=== PATIENT | female | born 1980 | race Caucasian/White ===

== ENCOUNTER 2018-11-10 22:57 | Observation (INO) | payer OTHER, SELFPAY ==
[2018-11-10 23:00] VITALS: BP 127/101; PULSE 100; RESP 16; TEMP 36.4; O2SAT 95; BMI 42.9
--- NOTE | 2018-11-10 23:16 | ED.EXTPRO ---
HPI - Extremity Problem General Chief complaint: Extremity Problem,Nontraumatic Stated complaint: LEFT LEG SWELLING NOT ABLE TO FEEL TOES Time Seen by Provider: 11/10/18 23:12 Source: patient Mode of arrival: ambulatory Limitations: no limitations History of Present Illness HPI Narrative: This is a 38-year-old female comes the emergency department with complaint of left leg pain. Patient has been having pain in the left calf. Patient states about a week ago she had area where the varicose vein sort of busted she states and there is bruising and pain. She saw the [facility] doctor who told her it was fine and they were flying to [place]. While in [place] she has had increasing pain of the leg and calf with increasing swelling and redness. The redness and swelling and pain really increased over the last 3-4 days. Patient has not had any fevers that she is aware of. She denies any shortness of breath and/or chest pain. She denies any passing out. She denies any vomiting, she was slightly nauseated earlier today. She denies any urinary symptoms or diarrhea or constipation. She is on a Depo shot, she denies any prior DVT history. Related Data Allergies Allergy/AdvReac Type Severity Reaction Status Date / Time iodine Allergy Anaphylaxis Verified 11/10/18 23:07 Review of Systems Review of Systems All systems reviewed & are unremarkable except as noted in HPI and below Constitutional Denies chills and Denies fever(s) Cardiovascular Denies chest pain, Denies palpitations, Denies dyspnea and Denies dyspnea on exertion Respiratory Denies cough, Denies pain on inspiration, Denies dyspnea, Denies dyspnea on exertion and Denies wheezing Gastrointestinal Gastrointestinal: Denies abdominal pain, Denies change in bowel habits, Denies constipation, Denies diarrhea, Denies nausea and Denies vomiting Genitourinary Denies urinary frequency, Denies dysuria and Denies urinary urgency Musculoskeletal Reports as per HPI, Reports muscle cramps (left calf), Denies muscle weakness, Denies numbness and Denies tingling Integumentary/Breasts Reports as per HPI and Reports erythema Neurologic Denies numbness, Denies tingling and Reports paresthesias (toes) Endocrine Denies palpitations Allergic/Immunologic Denies wheezing [facility] Medical History GERD (gastroesophageal reflux disease) (Acute) Morbid obesity with BMI of 40.0-44.9, adult (Acute) Varicose veins of both lower extremities (Acute) Surgical History History of cholecystectomy (Acute) Family History: Reviewed 11/11/18 by NAKIA Zuniga Social History household members: family Smoking Status: Never smoker alcohol intake: never Exam Narrative Exam Narrative: GENERAL: Alert and oriented x three, moderately obese female in mild distress. HEENT: Head normocephalic, atraumatic, EOMI, pupils reactive, face symmetric, moist mucous membranes NECK: Supple, full range of motion CARDIOVASCULAR: Regular rate and rhythm without murmurs, rubs or gallops. RESPIRATORY: Breath sounds equal bilaterally, no wheezes rales or rhonchi. ABDOMEN: Soft, nontender. Normoactive bowel sounds all 4 quadrants. No guarding or rebound, rigidity, no mass EXTREMITIES: Normal range of motion, no clubbing. Patient's left lower extremity in the calf area is more swollen in comparison to the right. Patient has erythema of the left calf with no clear line of demarcation where the erythema stops it covers about a 5 x 7 cm area. There is some pitting, it is non edematous. Patient is tender to palpation of the calf. She has 2+ pulses in the lower extremity bilaterally Neurovascularly intact NEUROLOGICAL: Cranial nerves II through XII grossly intact. Moving all extremities SKIN: Warm, dry, no petechiae, no lesions/lacerations noted. Initial Vital Signs Initial Vital Signs: Vital Signs Temperature 97.6 F 11/10/18 23:00 Pulse Rate 100 H 11/10/18 23:00 Respiratory Rate 16 11/10/18 23:00 Blood Pressure 127/101 H 11/10/18 23:00 Pulse Oximetry 95 11/10/18 23:00 Course Orders Ordered: ED Orders 11/10/18 23:28 US periph venous low extrem lt Stat 11/10/18 23:46 Basic Metabolic Panel Stat Complete Blood Count AUTO DIFF Stat Lactate (Lactic Acid) Stat Partial Thromboplastin Time Stat Prothrombin Time INR Stat 11/11/18 CRP [C-Reactive Protein Quant] Routine Erythrocyte Sedimentation Rate Routine Uric Acid Routine 11/11/18 00:11 Test Serum,Qual Stat 11/11/18 02:18 Consult to Discharge Planning Routine 11/11/18 12:00 Basic Metabolic Panel Routine Complete Blood Count AUTO DIFF Routine Acetaminophen (Tylenol) 650 mg PO Q6HR PRN PRN Reason: As Needed for Fever/Mild Pain Enoxaparin Sodium (Lovenox) 40 mg SUBCUT DAILY YARIEL Sodium Chloride (Normal Saline 0.9%) 1,000 mls @ 100 mls/hr IV CONT YARIEL Last Admin: 11/11/18 02:57 Dose: 100 mls/hr Clindamycin Phosphate (Cleocin) 600 mg in 50 mls @ 50 mls/hr IV Q8H YARIEL Ibuprofen (Advil) 600 mg PO Q6HR PRN PRN Reason: As Needed for Fever/Mild Pain Lactobacillus Acidophilus (Bacid Caplet) 1 each PO BIDWM YARIEL Ondansetron HCl (Zofran) 4 mg IV Q8HR PRN PRN Reason: Nausea And Vomiting Discontinued Medications Sodium Chloride (Normal Saline 0.9%) 1,000 mls @ 1,000 mls/hr IV BOLUS ONE Stop: 11/11/18 00:28 Last Infusion: 11/11/18 02:33 Dose: 0 mls/hr Admin: 11/10/18 23:51 Dose: 1,000 mls/hr Clindamycin Phosphate (Cleocin) 600 mg in 50 mls @ 50 mls/hr IV NOW ONE Stop: 11/11/18 01:06 Last Infusion: 11/11/18 02:33 Dose: 0 mls/hr Admin: 11/11/18 00:37 Dose: 50 mls/hr Ketorolac Tromethamine (Toradol) 30 mg IV NOW ONE Stop: 11/10/18 23:30 Last Admin: 11/10/18 23:52 Dose: 30 mg Morphine Sulfate (Morphine) 2 mg IV NOW ONE Stop: 11/11/18 01:25 Last Admin: 11/11/18 02:06 Dose: 2 mg Vital Signs - 8 hr 11/10/18 23:00 11/11/18 02:40 Temperature 97.6 F 98.6 F Pulse Rate 100 H 81 Respiratory Rate 16 16 Blood Pressure 127/101 H 133/86 Pulse Oximetry 95 99 MDM - Extremity (Nontraumatic) Lab Data Attestation: I reviewed the patient's lab results. Result diagrams: 12/10/18 23:46 11/10/18 23:46 Lab Results 11/10/18 11/10/18 11/10/18 Range/Units 23:46 23:46 23:46 WBC 5.6 (4.5-11.0) X10^3/uL RBC 5.10 (4.0-5.2) X10^6/uL Hgb 15.5 (12.0-16.0) g/dL Hct 44.6 (36-46) % MCV 87.4 (80-100) fL MCH 30.4 (26-34) PG MCHC 34.8 (30-36) % RDW 13.1 (11.6-14.8) % Plt Count 342 (150-400) X10^3/uL Neut % (Auto) 68.5 (50-75) % Lymph % (Auto) 20.2 L (25-40) % Love % (Auto) 6.7 (3-14) % Eos % (Auto) 3.7 (2-4) % Baso % (Auto) 0.9 (0-2) % Neut # (Auto) 3800 (0850-7547) /uL PT 12.2 (10.1-12.7) SECONDS INR 1.1 (0.9-1.3) APTT 30 (26.4-36.2) SECONDS Sodium 142 (137-145) mmol/L Potassium 3.7 (3.4-5.1) mmol/L Chloride 105 (98-107) mmol/L Carbon Dioxide 25 (22-32) mmol/L BUN 16 (7-17) mg/dL Creatinine 0.90 (0.52-1.04) mg/dL Estimated GFR > 60.0 (>60) mL/min BUN/Creatinine Ratio 17.8 (6-22) Glucose 98 (70-100) mg/dL Lactate (0.7-2.1) mmol/L Uric Acid (2.5-6.2) mg/dL Calcium 9.3 (8.4-10.2) mg/dL C-Reactive Protein (<1.0) mg/dL Serum , Qual (Negative) 11/10/18 11/10/18 11/10/18 Range/Units 23:46 23:46 23:46 WBC (4.5-11.0) X10^3/uL RBC (4.0-5.2) X10^6/uL Hgb (12.0-16.0) g/dL Hct (36-46) % MCV (80-100) fL MCH (26-34) PG MCHC (30-36) % RDW (11.6-14.8) % Plt Count (150-400) X10^3/uL Neut % (Auto) (50-75) % Lymph % (Auto) (25-40) % [place] % (Auto) (3-14) % Eos % (Auto) (2-4) % Baso % (Auto) (0-2) % Neut # (Auto) (8853-8554) /uL PT (10.1-12.7) SECONDS INR (0.9-1.3) APTT (26.4-36.2) SECONDS Sodium (137-145) mmol/L Potassium (3.4-5.1) mmol/L Chloride (98-107) mmol/L Carbon Dioxide (22-32) mmol/L BUN (7-17) mg/dL Creatinine (0.52-1.04) mg/dL Estimated GFR (>60) mL/min BUN/Creatinine Ratio (6-22) Glucose (70-100) mg/dL Lactate 0.7 (0.7-2.1) mmol/L Uric Acid (2.5-6.2) mg/dL Calcium (8.4-10.2) mg/dL C-Reactive Protein 2.2 H (<1.0) mg/dL Serum , Qual Negative (Negative) 11/10/18 Range/Units 23:46 WBC (4.5-11.0) X10^3/uL RBC (4.0-5.2) X10^6/uL Hgb (12.0-16.0) g/dL Hct (36-46) % MCV (80-100) fL MCH (26-34) PG MCHC (30-36) % RDW (11.6-14.8) % Plt Count (150-400) X10^3/uL Neut % (Auto) (50-75) % Lymph % (Auto) (25-40) % Love % (Auto) (3-14) % Eos % (Auto) (2-4) % Baso % (Auto) (0-2) % Neut # (Auto) (5065-4624) /uL PT (10.1-12.7) SECONDS INR (0.9-1.3) APTT (26.4-36.2) SECONDS Sodium (137-145) mmol/L Potassium (3.4-5.1) mmol/L Chloride (98-107) mmol/L Carbon Dioxide (22-32) mmol/L BUN (7-17) mg/dL Creatinine (0.52-1.04) mg/dL Estimated GFR (>60) mL/min BUN/Creatinine Ratio (6-22) Glucose (70-100) mg/dL Lactate (0.7-2.1) mmol/L Uric Acid 4.3 (2.5-6.2) mg/dL Calcium (8.4-10.2) mg/dL C-Reactive Protein (<1.0) mg/dL Serum , Qual (Negative) Imaging Data Venous US: Radiologist's impression: All the deep veins from common femoral vein through the popliteal vein of the left lower extremity demonstrate compressibility and augmentation. No masses or fluid collections were identified. Color flow images not provided. MDM Narrative Medical decision making narrative: patient concerning for cellulitis vs. dvt vs other cause. US is negative for DVT, patient has redness and recent area with break in the skin that could be source of bacterial infection. No signs of sepsis and patient's labs are normal. Given Clindamycin IV in department, on re-evaluation patient's cellulitis appears to be spreading while here in the department over the past 2 hr. Although patient has been afebrile, her only Vital abnormality has been elevated pulse lab work does not consistent with signs of sepsis with her quick spread of cellulitis talked with the hospitalist, Molina and she accepts for observation. Patient does not have pain out of proportion, no subcutaneous emphysema or signs concerning for nec fac at this time. Patient leg was marked for easier evaluation of skin changes by nursing. Discharge Plan Departure Patient Disposition: Admitted as Observation Clinical Impression: Cellulitis of left lower extremity Discharge Date/Time: 11/11/18 02:37 Interventions: ED Discharge Assessment Last Done: 11/11/18 02:36 Admit Date/Time: 11/11/18 01:41 Admit Provider: Klarissa Auguste
--- NOTE | 2018-11-10 23:28 | DI.US.S_ITS ---
PROCEDURE: US PERIPH VENOUS LOW EXTREM LT INDICATIONS: left leg swelling, redness, pain of calf. TECHNIQUE: Real-time imaging, as well as color and pulse Doppler interrogation, were performed of the lower extremity deep veins from the inguinal ligament to the popliteal fossa. COMPARISON: None. FINDINGS: The deep veins are normally compressible, and free of intraluminal thrombus. Color and pulse Doppler demonstrate normal phasic intraluminal flow. There is normal augmentation response to distal compression maneuver. IMPRESSION: No deep venous thrombosis identified within the left lower extremity. Dictated by: Beau AGUILAR Interpreted: Nilsa Tellez MD on 11/11/2018 at 9:23 Approved by: Nilsa Tellez M.D. on 11/11/2018 at 14:46
--- NOTE | 2018-11-10 23:34 | ED_ITS ---
HPI - Extremity Problem General Chief complaint: Extremity Problem,Nontraumatic Stated complaint: LEFT LEG SWELLING NOT ABLE TO FEEL TOES Time Seen by Provider: 11/10/18 23:12 Source: patient Mode of arrival: ambulatory Limitations: no limitations History of Present Illness HPI Narrative: This is a 38-year-old female comes the emergency department with complaint of left leg pain. Patient has been having pain in the left calf. Patient states about a week ago she had area where the varicose vein sort of busted she states and there is bruising and pain. She saw the [facility] doctor who told her it was fine and they were flying to [place]. While in [place] she has had increasing pain of the leg and calf with increasing swelling and redness. The redness and swelling and pain really increased over the last 3 -4 days. Patient has not had any fevers that she is aware of. She denies any shortness of breath and/or chest pain. She denies any passing out. She denies any vomiting, she was slightly nauseated earlier today. She denies any urinary symptoms or diarrhea or constipation. She is on a Depo shot, she denies any prior DVT history. Related Data Allergies Allergy/AdvReac Type Severity Reaction Status Date / Time iodine Allergy Anaphylaxis Verified 11/10/18 23:07 Review of Systems Review of Systems All systems reviewed & are unremarkable except as noted in HPI and below Constitutional Denies chills and Denies fever(s) Cardiovascular Denies chest pain, Denies palpitations, Denies dyspnea and Denies dyspnea on exertion Respiratory Denies cough, Denies pain on inspiration, Denies dyspnea, Denies dyspnea on exertion and Denies wheezing Gastrointestinal Gastrointestinal: Denies abdominal pain, Denies change in bowel habits, Denies constipation, Denies diarrhea, Denies nausea and Denies vomiting Genitourinary Denies urinary frequency, Denies dysuria and Denies urinary urgency Musculoskeletal Reports as per HPI, Reports muscle cramps (left calf), Denies muscle weakness, Denies numbness and Denies tingling Integumentary/Breasts Reports as per HPI and Reports erythema Neurologic Denies numbness, Denies tingling and Reports paresthesias (toes) Endocrine Denies palpitations Allergic/Immunologic Denies wheezing [facility] Medical History GERD (gastroesophageal reflux disease) (Acute) Morbid obesity with BMI of 40.0-44.9, adult (Acute) Varicose veins of both lower extremities (Acute) Surgical History History of cholecystectomy (Acute) Family History: Reviewed 11/11/18 by NAKIA Zuniga Social History household members: family Smoking Status: Never smoker alcohol intake: never Exam Narrative Exam Narrative: GENERAL: Alert and oriented x three, moderately obese female in mild distress. HEENT: Head normocephalic, atraumatic, EOMI, pupils reactive, face symmetric, moist mucous membranes NECK: Supple, full range of motion CARDIOVASCULAR: Regular rate and rhythm without murmurs, rubs or gallops. RESPIRATORY: Breath sounds equal bilaterally, no wheezes rales or rhonchi. ABDOMEN: Soft, nontender. Normoactive bowel sounds all 4 quadrants. No guarding or rebound, rigidity, no mass EXTREMITIES: Normal range of motion, no clubbing. Patient's left lower extremity in the calf area is more swollen in comparison to the right. Patient has erythema of the left calf with no clear line of demarcation where the erythema stops it covers about a 5 x 7 cm area. There is some pitting, it is non edematous. Patient is tender to palpation of the calf. She has 2+ pulses in the lower extremity bilaterally Neurovascularly intact NEUROLOGICAL: Cranial nerves II through XII grossly intact. Moving all extremities SKIN: Warm, dry, no petechiae, no lesions/lacerations noted. Initial Vital Signs Initial Vital Signs: Vital Signs Temperature 97.6 F 11/10/18 23:00 Pulse Rate 100 H 11/10/18 23:00 Respiratory Rate 16 11/10/18 23:00 Blood Pressure 127/101 H 11/10/18 23:00 Pulse Oximetry 95 11/10/18 23:00 Course Orders Ordered: ED Orders 11/10/18 23:28 US periph venous low extrem lt Stat 11/10/18 23:46 Basic Metabolic Panel Stat Complete Blood Count AUTO DIFF Stat Lactate (Lactic Acid) Stat Partial Thromboplastin Time Stat Prothrombin Time INR Stat 11/11/18 CRP [C-Reactive Protein Quant] Routine Erythrocyte Sedimentation Rate Routine Uric Acid Routine 11/11/18 00:11 Test Serum,Qual Stat 11/11/18 02:18 Consult to Discharge Planning Routine 11/11/18 12:00 Basic Metabolic Panel Routine Complete Blood Count AUTO DIFF Routine Acetaminophen (Tylenol) 650 mg PO Q6HR PRN PRN Reason: As Needed for Fever/Mild Pain Enoxaparin Sodium (Lovenox) 40 mg SUBCUT DAILY YARIEL Sodium Chloride (Normal Saline 0.9%) 1,000 mls @ 100 mls/hr IV CONT YARIEL Last Admin: 11/11/18 02:57 Dose: 100 mls/hr Clindamycin Phosphate (Cleocin) 600 mg in 50 mls @ 50 mls/hr IV Q8H YARIEL Ibuprofen (Advil) 600 mg PO Q6HR PRN PRN Reason: As Needed for Fever/Mild Pain Lactobacillus Acidophilus (Bacid Caplet) 1 each PO BIDWM YARIEL Ondansetron HCl (Zofran) 4 mg IV Q8HR PRN PRN Reason: Nausea And Vomiting Discontinued Medications Sodium Chloride (Normal Saline 0.9%) 1,000 mls @ 1,000 mls/hr IV BOLUS ONE Stop: 11/11/18 00:28 Last Infusion: 11/11/18 02:33 Dose: 0 mls/hr Admin: 11/10/18 23:51 Dose: 1,000 mls/hr Clindamycin Phosphate (Cleocin) 600 mg in 50 mls @ 50 mls/hr IV NOW ONE Stop: 11/11/18 01:06 Last Infusion: 11/11/18 02:33 Dose: 0 mls/hr Admin: 11/11/18 00:37 Dose: 50 mls/hr Ketorolac Tromethamine (Toradol) 30 mg IV NOW ONE Stop: 11/10/18 23:30 Last Admin: 11/10/18 23:52 Dose: 30 mg Morphine Sulfate (Morphine) 2 mg IV NOW ONE Stop: 11/11/18 01:25 Last Admin: 11/11/18 02:06 Dose: 2 mg Vital Signs - 8 hr 11/10/18 23:00 11/11/18 02:40 Temperature 97.6 F 98.6 F Pulse Rate 100 H 81 Respiratory Rate 16 16 Blood Pressure 127/101 H 133/86 Pulse Oximetry 95 99 MDM - Extremity (Nontraumatic) Lab Data Attestation: I reviewed the patient's lab results. Result diagrams: 12/10/18 23:46 11/10/18 23:46 Lab Results 11/10/18 11/10/18 11/10/18 Range/Units 23:46 23:46 23:46 WBC 5.6 (4.5-11.0) X10^3/uL RBC 5.10 (4.0-5.2) X10^6/uL Hgb 15.5 (12.0-16.0) g/dL Hct 44.6 (36-46) % MCV 87.4 (80-100) fL MCH 30.4 (26-34) PG MCHC 34.8 (30-36) % RDW 13.1 (11.6-14.8) % Plt Count 342 (150-400) X10^3/uL Neut % (Auto) 68.5 (50-75) % Lymph % (Auto) 20.2 L (25-40) % [place] % (Auto) 6.7 (3-14) % Eos % (Auto) 3.7 (2-4) % Baso % (Auto) 0.9 (0-2) % Neut # (Auto) 3800 (1066-1907) /uL PT 12.2 (10.1-12.7) SECONDS INR 1.1 (0.9-1.3) APTT 30 (26.4-36.2) SECONDS Sodium 142 (137-145) mmol/L Potassium 3.7 (3.4-5.1) mmol/L Chloride 105 (98-107) mmol/L Carbon Dioxide 25 (22-32) mmol/L BUN 16 (7-17) mg/dL Creatinine 0.90 (0.52-1.04) mg/dL Estimated GFR > 60.0 (>60) mL/min BUN/Creatinine Ratio 17.8 (6-22) Glucose 98 (70-100) mg/dL Lactate (0.7-2.1) mmol/L Uric Acid (2.5-6.2) mg/dL Calcium 9.3 (8.4-10.2) mg/dL C-Reactive Protein (<1.0) mg/dL Serum , Qual (Negative) 11/10/18 11/10/18 11/10/18 Range/Units 23:46 23:46 23:46 WBC (4.5-11.0) X10^3/uL RBC (4.0-5.2) X10^6/uL Hgb (12.0-16.0) g/dL Hct (36-46) % MCV (80-100) fL MCH (26-34) PG MCHC (30-36) % RDW (11.6-14.8) % Plt Count (150-400) X10^3/uL Neut % (Auto) (50-75) % Lymph % (Auto) (25-40) % [place] % (Auto) (3-14) % Eos % (Auto) (2-4) % Baso % (Auto) (0-2) % Neut # (Auto) (0526-6910) /uL PT (10.1-12.7) SECONDS INR (0.9-1.3) APTT (26.4-36.2) SECONDS Sodium (137-145) mmol/L Potassium (3.4-5.1) mmol/L Chloride (98-107) mmol/L Carbon Dioxide (22-32) mmol/L BUN (7-17) mg/dL Creatinine (0.52-1.04) mg/dL Estimated GFR (>60) mL/min BUN/Creatinine Ratio (6-22) Glucose (70-100) mg/dL Lactate 0.7 (0.7-2.1) mmol/L Uric Acid (2.5-6.2) mg/dL Calcium (8.4-10.2) mg/dL C-Reactive Protein 2.2 H (<1.0) mg/dL Serum , Qual Negative (Negative) 11/10/18 Range/Units 23:46 WBC (4.5-11.0) X10^3/uL RBC (4.0-5.2) X10^6/uL Hgb (12.0-16.0) g/dL Hct (36-46) % MCV (80-100) fL MCH (26-34) PG MCHC (30-36) % RDW (11.6-14.8) % Plt Count (150-400) X10^3/uL Neut % (Auto) (50-75) % Lymph % (Auto) (25-40) % [place] % (Auto) (3-14) % Eos % (Auto) (2-4) % Baso % (Auto) (0-2) % Neut # (Auto) (6741-2904) /uL PT (10.1-12.7) SECONDS INR (0.9-1.3) APTT (26.4-36.2) SECONDS Sodium (137-145) mmol/L Potassium (3.4-5.1) mmol/L Chloride (98-107) mmol/L Carbon Dioxide (22-32) mmol/L BUN (7-17) mg/dL Creatinine (0.52-1.04) mg/dL Estimated GFR (>60) mL/min BUN/Creatinine Ratio (6-22) Glucose (70-100) mg/dL Lactate (0.7-2.1) mmol/L Uric Acid 4.3 (2.5-6.2) mg/dL Calcium (8.4-10.2) mg/dL C-Reactive Protein (<1.0) mg/dL Serum , Qual (Negative) Imaging Data Venous US: Radiologist's impression: All the deep veins from common femoral vein through the popliteal vein of the left lower extremity demonstrate compressibility and augmentation. No masses or fluid collections were identified. Color flow images not provided. MDM Narrative Medical decision making narrative: patient concerning for cellulitis vs. dvt vs other cause. US is negative for DVT, patient has redness and recent area with break in the skin that could be source of bacterial infection. No signs of sepsis and patient's labs are normal. Given Clindamycin IV in department, on re-evaluation patient's cellulitis appears to be spreading while here in the department over the past 2 hr. Although patient has been afebrile, her only Vital abnormality has been elevated pulse lab work does not consistent with signs of sepsis with her quick spread of cellulitis talked with the hospitalist , Molina and she accepts for observation. Patient does not have pain out of proportion, no subcutaneous emphysema or signs concerning for nec fac at this time. Patient leg was marked for easier evaluation of skin changes by nursing. Discharge Plan Departure Patient Disposition: Admitted as Observation Clinical Impression: Cellulitis of left lower extremity Discharge Date/Time: 11/11/18 02:37 Interventions: ED Discharge Assessment Last Done: 11/11/18 02:36 Admit Date/Time: 11/11/18 01:41 Admit Provider: Klarissa Auguste
[2018-11-10] MEDS: SODIUM CHLORIDE 0.9% 1,000 ML 1000 ML IV (23:51)
[2018-11-10] MEDS: KETOROLAC 60 MG/2 ML VIAL 30 MG IV (23:52)
[2018-11-11 00:03] LABS: Add Manual Diff / Slide Review NO; Basophils Percent Auto 0.9 % (0-2); Eosinophils Percent Auto 3.7 % (2-4); Hematocrit 44.6 % (36-46); Hemoglobin 15.5 g/dL (12.0-16.0); Lymphocytes Percent Auto 20.2 % (25-40); Mean Corpuscular HGB Conc 34.8 % (30-36); Mean Corpuscular Hemoglobin 30.4 PG (26-34); Mean Corpuscular Volume 87.4 fL (80-100); Monocytes Percent Auto 6.7 % (3-14); Neutrophils Absolute Auto 3800 /uL (3000-5900); Neutrophils Percent Auto 68.5 % (50-75); Platelet Count 342 X10^3/uL (150-400); Red Cell Distribution Width 13.1 % (11.6-14.8); White Blood Cell Count 5.6 X10^3/uL (4.5-11.0)
[2018-11-11 00:05] LABS: INR 1.1 (0.9-1.3); Prothrombin Time 12.2 SECONDS (10.1-12.7)
[2018-11-11 00:07] LABS: PTT Partial Thromboplastin Tim 30 SECONDS (26.4-36.2)
[2018-11-11 00:09] LABS: BUN Creatinine Ratio 17.8 (6-22); Blood Urea Nitrogen 16 mg/dL (7-17); Calcium 9.3 mg/dL (8.4-10.2); Carbon Dioxide 25 mmol/L (22-32); Chloride 105 mmol/L (98-107); Estimated Glomerular Filt Rate > 60.0 mL/min (>60); Glucose 98 mg/dL (70-100); HEMOLYSIS < 15 (0-50); Lactate (Lactic Acid) 0.7 mmol/L (0.7-2.1); Potassium 3.7 mmol/L (3.4-5.1); Sodium 142 mmol/L (137-145)
[2018-11-11 00:32] LABS: Pregnancy Test Serum,Qual Negative (Negative)
[2018-11-11] MEDS: CLINDAMYCIN 600 MG/50 ML PIGGYBACK 50 MG IV (00:37)
[2018-11-11] MEDS: MORPHINE 2 MG/ML INJ IV (02:06)
[2018-11-11 02:40] VITALS: BP 133/86; PULSE 81; RESP 16; TEMP 37; O2SAT 99
--- NOTE | 2018-11-11 02:41 | P.HP_ITS ---
History of Present Illness Date Patient Seen: 11/11/18 Time Patient Seen: 02:38 Chief complaint: LEFT LEG SWELLING NOT ABLE TO FEEL TOES Narrative: The patient is a 38-year-old female with PMH of morbid obesity (BMI 42.9) and osteoarthritis. Patient presented to the ED on 2017 in the 2300 hour out of concern for left lower extremity pain. Symptom onset 1 week ago. At that time she felt One week ago a sensation of what she describes as burst varicose vein, which was felt at the medial aspect of the calf level. Shortly after developed pain and discomfort in the area, she describes presence of mild localized redness. Patient was seen at an outpatient / urgent care type of clinic, diagnosed w/ cellulitis, and treated with a dose of oral antibiotic. Patient was not given additional antimicrobial agents, she was asked to follow up at the [facility], which she did and at that time was prescribed topical ointment to be applied to the affected area 3 to 4 times a day ( patient unable to recall the name of the ointment). she used the on meant for period of 5 days and found to be ineffective. Over the past 2 days there has been an increase in pain, edema, and erythema. Shortly after presenting to the ED, patient developed partial loss of sensation and tingling of the toes on the affected extremity. Erythema noted to be rapidly speading while patient in the ED. Patient denies fever and chills. No chest pain, palpitations, dyspnea, dizziness, lightheadedness or syncopal events. No nausea or vomiting. No s/s of active blood loss. Denies trauma to the affected extremity. No wounds or ulcers. No pruritis or visible dermatitis of the affected area. No known infection of the toes. No known breaks in skin. She has not been in a wooded area or notes risk of exposure to insect bites. There is a dog in the home. Traveled to [place] in the past week (travel was after onset of symptoms). While in [place] denies exposure to pools or hot tubs. No prior history of MRSA or cellulitis. No h/o of blood disorders or PE/DVT. Patient is known to have arthritis at multiple joints. No prior or current history of tobacco dependence. Known to have received Depo Provera in the past. Onset of symptoms 1 week ago. Prior to onset of the pain patient describes a varicose vein with sensation of bursting. Initially, associated symptoms included bruising; however, in the past 3-4 days patient has noticed swelling and erythema. Denies numbness or tingling. No fever or chills. No chest pain , palpitations, dizziness, lightheadedness, or syncopal events. No nausea or vomiting. No sign or symptoms of active blood loss. No known trauma to the affected extremity. No prior or current history of tobacco dependence. On a Depo Provera shot. No known history of coagulation disorders or prior thrombosis. No history of MRSA colonization. ED workup Initial VS: T 97.6, BP 127/101, HR 100, RR 16, SpO2 95 on RA LLE pain rated at 8/10 on presentation. WBC 5.6, HGB 15.5, PLT 342, lymphocytes 20.2% PT 12.2, INR 1.1, APTT 30 NA 142, K 3.7, CL 105, CA 9.3, CO2 25, BUN 16, sCR 0.90, GLU 98, Lactate 0.7 LLE Venous Doppler negative for DVT per report received from ED physician. Vascular U/S imaging / final read pending. Patient History Medical History GERD (gastroesophageal reflux disease) (Acute) Morbid obesity with BMI of 40.0-44.9, adult (Acute) Varicose veins of both lower extremities (Acute) Surgical History History of cholecystectomy (Acute) Family & Social History Family History: Reviewed 11/11/18 by NAKIA Zuniga Safety & Behavioral: Feels Safe in Current Yes Environment Tobacco & Substance use: Smoking Status Never smoker alcohol intake frequency 0-2 drinks per day Substance Use Type does not use Meds Allergies Allergy/AdvReac Type Severity Reaction Status Date / Time iodine Allergy Anaphylaxis Verified 11/10/18 23:07 Review of Systems Review of Systems All systems reviewed & are unremarkable except as noted in HPI and below Exam Vital Signs (past 8 hours): - 11/10/18 23:00 Temperature 97.6 F Pulse Rate 100 H Respiratory Rate 16 Blood Pressure 127/101 H Pulse Oximetry 95 Oxygen Delivery Method Room Air Narrative Exam Narrative: Constitutional: NAD, notes pain at left lower extremity Neurologic: AOx3, no focal neurological deficits Head: NC, AT Eyes: pupils equal and reactive Ears: external ears normal, no otorrhea Nose: external nose normal, no rhinorrhea or epistaxis Throat: dry MM, oropharynx w/o exudate Neck: no masses, lymphadenopathy Chest / Respiratory: equal chest rise, unlabored respiratory effort, no tachypnea, CTAB Heart / CV: S1S2 Abdomen / GI: round, + central obesity, NT, ND, + BS, no organomegaly, no inginal lymphadenopathy : no suprapubic tenderness Peripheral / Vascular: RLE no edema, erythema or cyanosis LLE remarkable for non-pitting edema, erythma spread from ankle to slightly above knee and inner thigh (outlined), sensation is present but diminished, calf area hot to touch, foot slightly cool to touch, some mild mottling at the foot ankle site pedal and PT pulse present, diminished ROM of the ankle, no overt bruising , a degree of induration noted around calf area Musc: full ROM of upper and lower extremities, decreased ROM of left ankle Skin: LLE edema, erythema, induration Objective Labs Result Diagrams: 11/10/18 23:46 11/10/18 23:46 Labs: Laboratory Results - last 24 hr 11/10/18 11/10/18 11/10/18 23:46 23:46 23:46 WBC 5.6 RBC 5.10 Hgb 15.5 Hct 44.6 MCV 87.4 MCH 30.4 MCHC 34.8 RDW 13.1 Plt Count 342 Neut % (Auto) 68.5 Lymph % (Auto) 20.2 L [place] % (Auto) 6.7 Eos % (Auto) 3.7 Baso % (Auto) 0.9 Neut # (Auto) 3800 PT 12.2 INR 1.1 APTT 30 Sodium 142 Potassium 3.7 Chloride 105 Carbon Dioxide 25 BUN 16 Creatinine 0.90 Estimated GFR > 60.0 BUN/Creatinine Ratio 17.8 Glucose 98 Lactate Calcium 9.3 Serum , Qual 11/10/18 11/10/18 23:46 23:46 WBC RBC Hgb Hct MCV MCH MCHC RDW Plt Count Neut % (Auto) Lymph % (Auto) [place] % (Auto) Eos % (Auto) Baso % (Auto) Neut # (Auto) PT INR APTT Sodium Potassium Chloride Carbon Dioxide BUN Creatinine Estimated GFR BUN/Creatinine Ratio Glucose Lactate 0.7 Calcium Serum , Qual Negative Assessment & Plan Plan: Assessment/Plan Narrative: Left lower extremity cellulitis, does not involve foot No indication sepsis. Doppler U/S of LLE negative for DVT. DDx: Ruptured superficial varicosity w/ bleeding and hematoma, phlebitis, gout , septic arthritis - Blood cultures collected in the ED, results pending, to be followed - Add Sed Rate, CRP, and uric acid level. Repeat CBC, BMP at noon. - Empiric therapy w/ Clindamycin - IVF x1L, then d/c - Supportive care: elevate, rest affected extremity; analgesics for pain control - Neurovascular checks Q4H - Lake margins of cellulitis with skin marker to monitor for spread of inflammation Dehydration, mild, IVF Morbid Obesity, BMI 42.9 Patient wishes to be a full code. No formal health directive. Significant other is a surrogate decision maker. Home meds reviewed and reconciled accordingly.
[2018-11-11] MEDS: SODIUM CHLORIDE 0.9% 1,000 ML 100 ML IV (02:57)
[2018-11-11 03:01] VITALS: BMI 42.9
[2018-11-11 03:30] VITALS: O2SAT 99
[2018-11-11 04:52] LABS: C-Reactive Protein Quant 2.2 mg/dL (<1.0)
[2018-11-11 05:01] LABS: Uric Acid 4.3 mg/dL (2.5-6.2)
[2018-11-11 06:28] VITALS: BP 116/78; PULSE 83; RESP 16; TEMP 37.1; O2SAT 98
[2018-11-11 07:35] VITALS: BP 92/71; PULSE 74; RESP 18; TEMP 36.8; O2SAT 99
[2018-11-11 09:00] VITALS: O2SAT 99
[2018-11-11] MEDS: LACTOBACILLUS ACIDOPHILUS TABLET 1 EACH PO (09:23)
[2018-11-11] MEDS: VANCOMYCIN 1,000 MG/200 ML FROZ.PIGGY 200 MG IV (09:23)
[2018-11-11] MEDS: FUROSEMIDE 40 MG/4 ML VIAL IV (09:23)
[2018-11-11] MEDS: DOXYCYCLINE HYCLATE 100 MG TABLET PO (09:24)
[2018-11-11] MEDS: levoFLOXacin 250 MG TABLET 750 MG PO (09:24)
[2018-11-11] MEDS: ENOXAPARIN 40 MG/0.4 ML SYRINGE SUBCUT (09:24)
--- NOTE | 2018-11-11 11:45 | CM.DANOTE ---
DCP/Assessment: Reviewed chart. Patient is a 38yr old female admitted to [facility] as OBS status with LLE cellulitis. Primary payor is 1)Mario Eden. No PCP listed. Met with patient explained CM/SW role. Patient alert and oriented at time of visit. Patient reports that she resides with her family in [place] Patient's spouse is in the and they just relocated in [place] from [place]. Patient reports so far adjusting well. Patient reports that she is completely I in all ADL's. Patient denies any d/c planning needs and hopes to go home later today. P: Home when medically stable. MD reports possible d/c later this afternoon. WINSOME Valadez Discharge Planning/Care Management CM Discharge Assessment Start: 11/11/18 11:41 Freq: Status: Active Protocol: Document 11/11/18 11:43 KJS (Rec: 11/11/18 11:44 KJS [id number]) Discharge Planning Assessment Assigned Lapping Machine Tender WINSOME Valadez Contact Information Clarence Chen Advance Directives? Yes Advance Directives on File No: at mom's house History Provided By Patient Prior Living Arrangements House Household Members spouse family Type of transporation used prior to Drives own vehicle admit Independent with ADL's Yes Is patient alert and oriented? Yes Caregiver for Another Yes: Has child in the home Barriers to Discharge No Discharge Plan Home Referrals Initiated None needed Whiteboard Updated in Patient Room with Yes name and ext. # of Lapping Machine Tender Review Status In Process Please Provide Date Initial DC 11/11/18 Assessment Was Performed Next Review Type Continued Stay Review
--- NOTE | 2018-11-11 12:16 | PM.DS.1 ---
History of Present Illness Date Patient Seen: 11/11/18 Time Patient Seen: 08:40 Chief complaint: LEFT LEG SWELLING NOT ABLE TO FEEL TOES Narrative: [address] [address] History & Physical Report Patient: ROSALINE GAYTAN MR#: [id number] : 1980 Acct:[id number] Age/Sex: 38 / F Date of Service: 11/11/18 Provider: Klarissa Auguste History of Present Illness Date Patient Seen: 11/11/18 Time Patient Seen: 02:38 Chief complaint: LEFT LEG SWELLING NOT ABLE TO FEEL TOES Narrative: The patient is a 38-year-old female with PMH of morbid obesity (BMI 42.9) and osteoarthritis. Patient presented to the ED on 11/10/2018 in the 2300 hour out of concern for left lower extremity pain. Symptom onset 1 week ago. At that time she felt One week ago a sensation of what she describes as burst varicose vein, which was felt at the medial aspect of the calf level. Shortly after developed pain and discomfort in the area, she describes presence of mild localized redness. Patient was seen at an outpatient / urgent care type of clinic, diagnosed w/ cellulitis, and treated with a dose of oral antibiotic. Patient was not given additional antimicrobial agents, she was asked to follow up at the [facility], which she did and at that time was prescribed topical ointment to be applied to the affected area 3 to 4 times a day ( patient unable to recall the name of the ointment). she used the on meant for period of 5 days and found to be ineffective. Over the past 2 days there has been an increase in pain, edema, and erythema. Shortly after presenting to the ED, patient developed partial loss of sensation and tingling of the toes on the affected extremity. Erythema noted to be rapidly speading while patient in the ED. Patient denies fever and chills. No chest pain, palpitations, dyspnea, dizziness, lightheadedness or syncopal events. No nausea or vomiting. No s/s of active blood loss. Denies trauma to the affected extremity. No wounds or ulcers. No pruritis or visible dermatitis of the affected area. No known infection of the toes. No known breaks in skin. She has not been in a wooded area or notes risk of exposure to insect bites. There is a dog in the home. Traveled to [place] in the past week (travel was after onset of symptoms). While in [place] denies exposure to pools or hot tubs. No prior history of MRSA or cellulitis. No h/o of blood disorders or PE/DVT. Patient is known to have arthritis at multiple joints. No prior or current history of tobacco dependence. Known to have received Depo Provera in the past. Onset of symptoms 1 week ago. Prior to onset of the pain patient describes a varicose vein with sensation of bursting. Initially, associated symptoms included bruising; however, in the past 3-4 days patient has noticed swelling and erythema. Denies numbness or tingling. No fever or chills. No chest pain, palpitations, dizziness, lightheadedness, or syncopal events. No nausea or vomiting. No sign or symptoms of active blood loss. No known trauma to the affected extremity. No prior or current history of tobacco dependence. On a Depo Provera shot. No known history of coagulation disorders or prior thrombosis. No history of MRSA colonization. ED workup Initial VS: T 97.6, BP 127/101, HR 100, RR 16, SpO2 95 on RA LLE pain rated at 8/10 on presentation. WBC 5.6, HGB 15.5, PLT 342, lymphocytes 20.2% PT 12.2, INR 1.1, APTT 30 NA 142, K 3.7, CL 105, CA 9.3, CO2 25, BUN 16, sCR 0.90, GLU 98, Lactate 0.7 LLE Venous Doppler negative for DVT per report received from ED physician. Vascular U/S imaging / final read pending. Discharge Providers Date of admission: 11/11/18 01:41 Consults: 11/11/18 02:18 Consult to Discharge Planning Routine Comment: Discharge provider: Usama Araujo DO Discharge Date: 11/11/18 Summary Discharge Diagnosis: LEFT LOWER EXTREMITY CELLULITIS; CAUSE IS UNCLEAR; DC ON ABX OBESITY; MORBID; OUTPATIENT MANAGEMENT Hospital Course: - PATIENT PRESENTED WITH SOME REDNESS TO LEFT EXT - AT THIS TIME, THIS COULD POSSIBLY BE VENOUS STASIS WITH DERMATITIS WELL - SHE WAS TREATED WITH A FEW DOSE OF IV ABX THEN SWITCHED TO ORAL - SHE APPEARS TO BE STABLE AND WILL BE DC FROM THE HOSPITAL ON ORAL LEVAQUIN AND DOXY X 10 DAYS. - ADDITIONAL MANAGEMENT ER HER OUTPATIENT PROVIDERS THIS COULD BE TREATED IN OP SETTING Status at Discharge Cognitive/behavioral status at discharge: STABLE AND AT BASELINE MENTALLY; DC TO HOME Functional status at discharge: independent ambulation Overall status at discharge: patient is back to baseline Time Spent with Patient Greater than 30 minutes Exam Vital Signs (past 8 hours): - 11/11/18 06:28 11/11/18 07:35 11/11/18 09:00 Temperature 98.8 F 98.2 F Pulse Rate 83 74 Respiratory Rate 16 18 Blood Pressure 116/78 92/71 Pulse Oximetry 98 99 99 Oxygen Delivery Method Room Air Narrative Exam Narrative: NO ACUTE DISTRESS. PATIENT IS ALERT ORIENTED X3. VITAL SIGNS STABLE HEAD ATRAUMATIC NORMOCEPHALIC NECK : SUPPLE WITHOUT ADENOPATHY NO CAROTID BRUITS EYE: EOMI, PERRLA, NORMAL CONJUNCTIVA; NO JAUNDICE CHEST: REGULAR RATE. NO RUBS. PMI IS NON DISPLACED. NO MURMURS; NORMAL S1-S2 PULMONARY: DECREASED BS OVER THE BASES. MILD BIBASILAR CRACKLES NOTED; NO INCREASED DULLNESS TO PERCUSSION ABDOMEN: SOFT. NON TENDER. NON DISTENDED. BOWEL SOUNDS ARE PRESENT IN ALL 4 QUADRANTS. NO MASS. EXTREMITIES: 2+ NON PITTING EDEMA BLE; NO CYANOSIS OR CLUBBING NOTED. REDNESS TO LLE; NON TENDER TO TOUCH; NO OPEN LESIONS; NO DRAINAGE. NEURO: CRANIAL NERVES 2-12 GROSSLY INTACT. NO FOCAL NEUROLOGICAL DEFICIT NOTED. MSK: NORMAL RANGE OF MOTION FOR AGE. NO JOINT EFFUSION. SKIN: NORMAL FOR ETHNICITY; NO ECCHYMOSIS. NO LESION. GOOD TURGOR.; NO RASHES : NORMAL EXTERNAL GENITALIA. PSYCH : APPROPRIATE MOOD AND AFFECT. ALERT AWAKE ORIENTED X3 Objective Labs Result Diagrams: 11/10/18 23:46 11/10/18 23:46 Labs: Laboratory Results - last 24 hr 11/10/18 11/10/18 11/10/18 23:46 23:46 23:46 WBC 5.6 RBC 5.10 Hgb 15.5 Hct 44.6 MCV 87.4 MCH 30.4 MCHC 34.8 RDW 13.1 Plt Count 342 Neut % (Auto) 68.5 Lymph % (Auto) 20.2 L [place] % (Auto) 6.7 Eos % (Auto) 3.7 Baso % (Auto) 0.9 Neut # (Auto) 3800 PT 12.2 INR 1.1 APTT 30 Sodium 142 Potassium 3.7 Chloride 105 Carbon Dioxide 25 BUN 16 Creatinine 0.90 Estimated GFR > 60.0 BUN/Creatinine Ratio 17.8 Glucose 98 Lactate Uric Acid Calcium 9.3 C-Reactive Protein Serum , Qual 11/10/18 11/10/18 11/10/18 23:46 23:46 23:46 WBC RBC Hgb Hct MCV MCH MCHC RDW Plt Count Neut % (Auto) Lymph % (Auto) [place] % (Auto) Eos % (Auto) Baso % (Auto) Neut # (Auto) PT INR APTT Sodium Potassium Chloride Carbon Dioxide BUN Creatinine Estimated GFR BUN/Creatinine Ratio Glucose Lactate 0.7 Uric Acid Calcium C-Reactive Protein 2.2 H Serum , Qual Negative 11/10/18 23:46 WBC RBC Hgb Hct MCV MCH MCHC RDW Plt Count Neut % (Auto) Lymph % (Auto) [place] % (Auto) Eos % (Auto) Baso % (Auto) Neut # (Auto) PT INR APTT Sodium Potassium Chloride Carbon Dioxide BUN Creatinine Estimated GFR BUN/Creatinine Ratio Glucose Lactate Uric Acid 4.3 Calcium C-Reactive Protein Serum , Qual Discharge Plan Discharge Plan Patient Disposition: Home Discharge comment: ACT SCARLET CARDIAC DIET F/U WITH PCP 3-10 DAYS CARDIAC DIET WEAR ZAIRE HOSE / COMPRESSION STOCKINGS DURING DAYTIME. Discharge Med Rec/Prescriptions Prescriptions: New doxycycline hyclate 100 mg Tablet 100 mg PO BID 10 Days Qty: 20 RF: 0 L.acidoph-L.coletteg-B.bif-S.therm [Bacid (L. acidophilus)] 1 billion cell- 250 mg Tablet 1 ea PO BIDWM 15 Days RF: 0 levofloxacin [Levaquin] 750 mg tablet 750 mg PO DAILY 10 Days Qty: 10 RF: 0 Provider Discharge Instructions Diet: Low-fat and Low-cholesterol Skin/Wound/Dressing Care Report to your healthcare provider any signs of infection, such as:: chills, fever, night sweats, increased pain, unusual drainage and unusual redness Visit Report/Discharge Packet Instructions: DI for Cellulitis -- Adult Visit Report Forms: Stroke Signs & Symptoms Discharge Data Attending Provider: Klarissa Auguste Admit Date/Time: 11/11/18 01:41 Quality VTE Deep Vein Thrombosis/Pulmonary Embolism Present on Admission: No
--- NOTE | 2018-11-11 12:25 | P.DS_ITS ---
History of Present Illness Date Patient Seen: 11/11/18 Time Patient Seen: 08:40 Chief complaint: LEFT LEG SWELLING NOT ABLE TO FEEL TOES Narrative: [address] [address] History & Physical Report Patient: ROSALINE GAYTAN MR#: [id number] : 1980 Acct:[id number] Age/Sex: 38 / F Date of Service: 11/11/18 Provider: Klarissa Auguste History of Present Illness Date Patient Seen: 11/11/18 Time Patient Seen: 02:38 Chief complaint: LEFT LEG SWELLING NOT ABLE TO FEEL TOES Narrative: The patient is a 38-year-old female with PMH of morbid obesity (BMI 42.9) and osteoarthritis. Patient presented to the ED on 2017 in the 2300 hour out of concern for left lower extremity pain. Symptom onset 1 week ago. At that time she felt One week ago a sensation of what she describes as burst varicose vein, which was felt at the medial aspect of the calf level. Shortly after developed pain and discomfort in the area, she describes presence of mild localized redness. Patient was seen at an outpatient / urgent care type of clinic, diagnosed w/ cellulitis, and treated with a dose of oral antibiotic. Patient was not given additional antimicrobial agents, she was asked to follow up at the [facility], which she did and at that time was prescribed topical ointment to be applied to the affected area 3 to 4 times a day ( patient unable to recall the name of the ointment). she used the on meant for period of 5 days and found to be ineffective. Over the past 2 days there has been an increase in pain, edema, and erythema. Shortly after presenting to the ED, patient developed partial loss of sensation and tingling of the toes on the affected extremity. Erythema noted to be rapidly speading while patient in the ED. Patient denies fever and chills. No chest pain, palpitations, dyspnea, dizziness, lightheadedness or syncopal events. No nausea or vomiting. No s/s of active blood loss. Denies trauma to the affected extremity. No wounds or ulcers. No pruritis or visible dermatitis of the affected area. No known infection of the toes. No known breaks in skin. She has not been in a wooded area or notes risk of exposure to insect bites. There is a dog in the home. Traveled to [place] in the past week (travel was after onset of symptoms). While in [place] denies exposure to pools or hot tubs. No prior history of MRSA or cellulitis. No h/o of blood disorders or PE/DVT. Patient is known to have arthritis at multiple joints. No prior or current history of tobacco dependence. Known to have received Depo Provera in the past. Onset of symptoms 1 week ago. Prior to onset of the pain patient describes a varicose vein with sensation of bursting. Initially, associated symptoms included bruising; however, in the past 3-4 days patient has noticed swelling and erythema. Denies numbness or tingling. No fever or chills. No chest pain , palpitations, dizziness, lightheadedness, or syncopal events. No nausea or vomiting. No sign or symptoms of active blood loss. No known trauma to the affected extremity. No prior or current history of tobacco dependence. On a Depo Provera shot. No known history of coagulation disorders or prior thrombosis. No history of MRSA colonization. ED workup Initial VS: T 97.6, BP 127/101, HR 100, RR 16, SpO2 95 on RA LLE pain rated at 8/10 on presentation. WBC 5.6, HGB 15.5, PLT 342, lymphocytes 20.2% PT 12.2, INR 1.1, APTT 30 NA 142, K 3.7, CL 105, CA 9.3, CO2 25, BUN 16, sCR 0.90, GLU 98, Lactate 0.7 LLE Venous Doppler negative for DVT per report received from ED physician. Vascular U/S imaging / final read pending. Discharge Providers Date of admission: 11/11/18 01:41 Consults: 11/11/18 02:18 Consult to Discharge Planning Routine Comment: Discharge provider: Usama Araujo DO Discharge Date: 11/11/18 Summary Discharge Diagnosis: LEFT LOWER EXTREMITY CELLULITIS; CAUSE IS UNCLEAR; DC ON ABX OBESITY; MORBID; OUTPATIENT MANAGEMENT Hospital Course: - PATIENT PRESENTED WITH SOME REDNESS TO LEFT EXT - AT THIS TIME, THIS COULD POSSIBLY BE VENOUS STASIS WITH DERMATITIS WELL - SHE WAS TREATED WITH A FEW DOSE OF IV ABX THEN SWITCHED TO ORAL - SHE APPEARS TO BE STABLE AND WILL BE DC FROM THE HOSPITAL ON ORAL LEVAQUIN AND DOXY X 10 DAYS. - ADDITIONAL MANAGEMENT ER HER OUTPATIENT PROVIDERS THIS COULD BE TREATED IN OP SETTING Status at Discharge Cognitive/behavioral status at discharge: STABLE AND AT BASELINE MENTALLY; DC TO HOME Functional status at discharge: independent ambulation Overall status at discharge: patient is back to baseline Time Spent with Patient Greater than 30 minutes Exam Vital Signs (past 8 hours): - 11/11/18 06:28 11/11/18 07:35 11/11/18 09:00 Temperature 98.8 F 98.2 F Pulse Rate 83 74 Respiratory Rate 16 18 Blood Pressure 116/78 92/71 Pulse Oximetry 98 99 99 Oxygen Delivery Method Room Air Narrative Exam Narrative: NO ACUTE DISTRESS. PATIENT IS ALERT ORIENTED X3. VITAL SIGNS STABLE HEAD ATRAUMATIC NORMOCEPHALIC NECK : SUPPLE WITHOUT ADENOPATHY NO CAROTID BRUITS EYE: EOMI, PERRLA, NORMAL CONJUNCTIVA; NO JAUNDICE CHEST: REGULAR RATE. NO RUBS. PMI IS NON DISPLACED. NO MURMURS; NORMAL S1- S2 PULMONARY: DECREASED BS OVER THE BASES. MILD BIBASILAR CRACKLES NOTED; NO INCREASED DULLNESS TO PERCUSSION ABDOMEN: SOFT. NON TENDER. NON DISTENDED. BOWEL SOUNDS ARE PRESENT IN ALL 4 QUADRANTS. NO MASS. EXTREMITIES: 2+ NON PITTING EDEMA BLE; NO CYANOSIS OR CLUBBING NOTED. REDNESS TO LLE; NON TENDER TO TOUCH; NO OPEN LESIONS; NO DRAINAGE. NEURO: CRANIAL NERVES 2-12 GROSSLY INTACT. NO FOCAL NEUROLOGICAL DEFICIT NOTED. MSK: NORMAL RANGE OF MOTION FOR AGE. NO JOINT EFFUSION. SKIN: NORMAL FOR ETHNICITY; NO ECCHYMOSIS. NO LESION. GOOD TURGOR.; NO RASHES : NORMAL EXTERNAL GENITALIA. PSYCH : APPROPRIATE MOOD AND AFFECT. ALERT AWAKE ORIENTED X3 Objective Labs Result Diagrams: 11/10/18 23:46 11/10/18 23:46 Labs: Laboratory Results - last 24 hr 11/10/18 11/10/18 11/10/18 23:46 23:46 23:46 WBC 5.6 RBC 5.10 Hgb 15.5 Hct 44.6 MCV 87.4 MCH 30.4 MCHC 34.8 RDW 13.1 Plt Count 342 Neut % (Auto) 68.5 Lymph % (Auto) 20.2 L [place] % (Auto) 6.7 Eos % (Auto) 3.7 Baso % (Auto) 0.9 Neut # (Auto) 3800 PT 12.2 INR 1.1 APTT 30 Sodium 142 Potassium 3.7 Chloride 105 Carbon Dioxide 25 BUN 16 Creatinine 0.90 Estimated GFR > 60.0 BUN/Creatinine Ratio 17.8 Glucose 98 Lactate Uric Acid Calcium 9.3 C-Reactive Protein Serum , Qual 11/10/18 11/10/18 11/10/18 23:46 23:46 23:46 WBC RBC Hgb Hct MCV MCH MCHC RDW Plt Count Neut % (Auto) Lymph % (Auto) [place] % (Auto) Eos % (Auto) Baso % (Auto) Neut # (Auto) PT INR APTT Sodium Potassium Chloride Carbon Dioxide BUN Creatinine Estimated GFR BUN/Creatinine Ratio Glucose Lactate 0.7 Uric Acid Calcium C-Reactive Protein 2.2 H Serum , Qual Negative 11/10/18 23:46 WBC RBC Hgb Hct MCV MCH MCHC RDW Plt Count Neut % (Auto) Lymph % (Auto) [place] % (Auto) Eos % (Auto) Baso % (Auto) Neut # (Auto) PT INR APTT Sodium Potassium Chloride Carbon Dioxide BUN Creatinine Estimated GFR BUN/Creatinine Ratio Glucose Lactate Uric Acid 4.3 Calcium C-Reactive Protein Serum , Qual Discharge Plan Discharge Plan Patient Disposition: Home Discharge comment: ACT SCARLET CARDIAC DIET F/U WITH PCP 3-10 DAYS CARDIAC DIET WEAR ZAIRE HOSE / COMPRESSION STOCKINGS DURING DAYTIME. Discharge Med Rec/Prescriptions Prescriptions: New doxycycline hyclate 100 mg Tablet 100 mg PO BID 10 Days Qty: 20 RF: 0 L.acidoph-L.coletteg-B.bif-S.therm [Bacid (L. acidophilus)] 1 billion cell- 250 mg Tablet 1 ea PO BIDWM 15 Days RF: 0 levofloxacin [Levaquin] 750 mg tablet 750 mg PO DAILY 10 Days Qty: 10 RF: 0 Provider Discharge Instructions Diet: Low-fat and Low-cholesterol Skin/Wound/Dressing Care Report to your healthcare provider any signs of infection, such as:: chills, fever, night sweats, increased pain, unusual drainage and unusual redness Visit Report/Discharge Packet Instructions: DI for Cellulitis -- Adult Visit Report Forms: Stroke Signs & Symptoms Discharge Data Attending Provider: Klarissa Auguste Admit Date/Time: 11/11/18 01:41 Quality VTE Deep Vein Thrombosis/Pulmonary Embolism Present on Admission: No
[2018-11-11 12:31] LABS: Add Manual Diff / Slide Review NO; Basophils Percent Auto 0.6 % (0-2); Eosinophils Percent Auto 2.7 % (2-4); Hematocrit 41.4 % (36-46); Hemoglobin 14.5 g/dL (12.0-16.0); Lymphocytes Percent Auto 13.6 % (25-40); Mean Corpuscular Hemoglobin 30.4 PG (26-34); Mean Corpuscular Volume 86.7 fL (80-100); Monocytes Percent Auto 5.9 % (3-14); Neutrophils Absolute Auto 4600 /uL (3000-5900); Neutrophils Percent Auto 77.2 % (50-75); Platelet Count 298 X10^3/uL (150-400); Red Blood Cell Count 4.77 X10^6/uL (4.0-5.2); Red Cell Distribution Width 13.1 % (11.6-14.8); White Blood Cell Count 5.9 X10^3/uL (4.5-11.0)
[2018-11-11 12:36] LABS: BUN Creatinine Ratio 17.5 (6-22); Blood Urea Nitrogen 14 mg/dL (7-17); Calcium 8.6 mg/dL (8.4-10.2); Carbon Dioxide 25 mmol/L (22-32); Chloride 104 mmol/L (98-107); Estimated Glomerular Filt Rate > 60.0 mL/min (>60); Glucose 95 mg/dL (70-100); HEMOLYSIS 37 (0-50); Potassium 4.7 mmol/L (3.4-5.1); Sodium 141 mmol/L (137-145)
[2018-11-11 12:44] LABS: Erythrocyte Sedimentation Rate 28 MM/HR (0-20)
== END 2018-11-11 12:57 | disposition home or self-care (01) ==
LOC: ED 11-11 01:29 → AC 11-11 01:44
PROVIDERS: Admitting Provider Nurse Practitioner Gerontology; Emergency Provider Emergency Medicine; Visit Provider Nurse Practitioner Gerontology
DX: L03.116 Cellulitis of left lower limb (principal); M79.89 Other specified soft tissue disorders; E66.01 Morbid (severe) obesity due to excess calories; Z68.41 Body mass index [BMI] 40.0-44.9, adult; I83.93 Asymptomatic varicose veins of bilateral lower extremities; K21.9 Gastro-esophageal reflux disease without esophagitis
CPT/HCPCS: 36415; 36591; 80048; 83605; 84550; 84703; 85025; 85610; 85651; 85730; 86140; 87040; 93971; 96361; 96365; 96366; 96375; 99283; 99284; G0378; J1650; J1885; J1940; J2270; J3370

== ENCOUNTER 2019-09-21 02:31 | Emergency (ER) | payer OTHER, SELFPAY ==
[2019-09-21 02:38] VITALS: BP 144/95; PULSE 84; RESP 16; TEMP 36.7; O2SAT 99; BMI 40.8
--- NOTE | 2019-09-21 02:38 | ED.GENADULT ---
HPI - General Adult General Chief complaint: Abdominal Pain Stated complaint: has ulcers, is tasting blood in her mouth Time Seen by Provider: 09/21/19 02:34 Source: patient, family () and old records reviewed Mode of arrival: Ambulatory Limitations: no limitations History of Present Illness HPI narrative: 39-year-old female comes emergency with complaint of her ulcer causing pain. Patient states that she has had acid like taste in her mouth but also tasted a little bit of blood. She has not had any fevers, no chills. She denies any nausea or vomiting. She states she has had some constipation recently been having bowel movements. She has not had any urinary symptoms. She states that she typically has the acid taste. That is not uncommon for her. She states that her ulcer pain is a little bit worse than normal. She states lying backwards makes worse. She states she had an EGD 2 months ago which did show an ulcer. She was started on sucralfate, Zantac and Prilosec and is supposed to have a repeat EGD in the next week for evaluation to monitor. Patient states she is seeing a sweat box attendant Dr. Laurent. Her primary care is through the [facility]. Related Data Allergies Allergy/AdvReac Type Severity Reaction Status Date / Time iodine Allergy Anaphylaxis Verified 11/10/18 23:07 Review of Systems Review of Systems ROS Unobtainable: All systems reviewed & are unremarkable except as noted in HPI and below Patient History Medical History (Updated 09/21/19 @ 03:35 by Yamila Weller DO) GERD (gastroesophageal reflux disease) (Acute) Morbid obesity with BMI of 40.0-44.9, adult (Acute) Varicose veins of both lower extremities (Acute) Surgical History (Updated 09/21/19 @ 03:00 by Yamila Weller DO) History of cholecystectomy (Acute) History of esophagogastroduodenoscopy (EGD) (Acute) Social History household members: spouse and family Smoking Status: Never smoker alcohol intake: never Social History household members: spouse and family Smoking Status: Never smoker alcohol intake: never alcohol intake frequency: 0-2 drinks per day Substance Use Type: does not use Exam Narrative Exam Narrative: GENERAL: Alert and oriented x three, well-nourished, well-appearing obese female in mild distress. HEENT: Head normocephalic, atraumatic, EOMI, pupils reactive, face symmetric, moist mucous membranes NECK: Supple, full range of motion CARDIOVASCULAR: Regular rate and rhythm without murmurs, rubs or gallops. RESPIRATORY: Breath sounds equal bilaterally, no wheezes rales or rhonchi. ABDOMEN: Soft, positive for epigastric tenderness. Patient does appear more uncomfortable when she lays backwards more comfortable sitting forward. Normoactive bowel sounds all 4 quadrants. No guarding or rebound, rigidity, no mass : No CVA tenderness EXTREMITIES: Normal range of motion, no clubbing or edema. Neurovascularly intact NEUROLOGICAL: Cranial nerves II through XII grossly intact. Moving all extremities SKIN: Warm, dry, no petechiae, no rashes or lesions. Initial Vital Signs Initial Vital Signs: Vital Signs Temperature 98.0 F 09/21/19 02:38 Pulse Rate 84 09/21/19 02:38 Respiratory Rate 16 09/21/19 02:38 Blood Pressure 144/95 H 09/21/19 02:38 Pulse Oximetry 99 09/21/19 02:38 Course Orders Ordered: ED Orders 09/21/19 02:44 EKG-12 Lead Routine 09/21/19 03:10 Complete Blood Count AUTO DIFF Stat Comprehensive Metabolic Panel Stat Lipase Stat 09/21/19 03:44 Urine Microscopic Stat Discontinued Medications Al Hydrox/Mg Hydrox/Simethicone 20 ml/ Lidocaine HCl 15 ml 0 ml PO NOW ONE Stop: 09/21/19 02:58 Last Admin: 09/21/19 03:07 Dose: 35 ml Documented by: ERIC Pantoprazole Sodium (Protonix) 40 mg IV NOW ONE Stop: 09/21/19 02:58 Last Admin: 09/21/19 03:07 Dose: 40 mg Documented by: ERIC Vital Signs Vital signs: Vital Signs - 8 hr 09/21/19 02:38 09/21/19 04:29 Temperature 98.0 F Pulse Rate 84 80 Respiratory Rate 16 14 Blood Pressure 144/95 H 133/96 H Pulse Oximetry 99 96 Medical Decision Making Lab Data Lab results reviewed: Yes I reviewed the patient's lab results. Result diagrams: 09/21/19 03:10 09/21/19 03:10 Labs: Lab Results 09/21/19 09/21/19 09/21/19 Range/Units 03:10 03:10 03:44 WBC 6.4 (4.5-11.0) X10^3/uL RBC 5.08 (4.0-5.2) X10^6/uL Hgb 15.6 (12.0-16.0) g/dL Hct 44.8 (36-46) % MCV 88.2 (80-100) fL MCH 30.8 (26-34) PG MCHC 34.9 (30-36) % RDW 13.1 (11.6-14.8) % Plt Count 305 (150-400) X10^3/uL Neut % (Auto) 69.6 (50-75) % Lymph % (Auto) 20.1 L (25-40) % [place] % (Auto) 6.4 (3-14) % Eos % (Auto) 2.9 (2-4) % Baso % (Auto) 1.0 (0-2) % Neut # (Auto) 4400 (3422-1742) /uL Lymph # (Auto) 1300 (7532-8832) /uL [place] # (Auto) 400 (0-900) /uL Eos # (Auto) 200 (0-450) /uL Baso # (Auto) 100 (0-100) /uL Sodium 138 (137-145) mmol/L Potassium 4.1 (3.4-5.1) mmol/L Chloride 106 (98-107) mmol/L Carbon Dioxide 26 (22-32) mmol/L BUN 17 (7-17) mg/dL Creatinine 0.90 (0.52-1.04) mg/dL Estimated GFR > 60.0 (>60) mL/min BUN/Creatinine Ratio 18.9 (6-22) Glucose 104 H (70-100) mg/dL Calcium 9.2 (8.4-10.2) mg/dL Total Bilirubin 0.6 (0.2-1.3) mg/dL AST 20 (14-36) IU/L ALT 21 (9-52) IU/L Alkaline Phosphatase 60 (38-126) U/L Total Protein 7.6 (6.3-8.2) g/dL Albumin 4.2 (3.5-5.0) g/dL Globulin 3.4 (1.7-4.1) g/dL Albumin/Globulin Ratio 1.2 (1.0-2.8) Lipase 156 (23-300) U/L Urine RBC 0-1/hpf (0-5/HPF) Urine WBC 30-100/hpf H (0-5/HPF) Ur Squamous Epith Cells 10-30 /hpf H (0-5/HPF) Urine Bacteria Moderate (10-30) H (None) Hyaline Casts 0-1/lpf (None) Urine Mucus 1+ H (Negative) Ur Culture Indicated? Cult not indicated Point of Care Testing Test Results Negative Urine Dip Bedside Urine Glucose Negative Bedside Urine Bilirubin - Negative Bedside Urine Ketone - Negative Urine Specific [place] 1.020 Bedside Urine Occult Blood - Negative Bedside Urine pH 6.0 Bedside Urine Protein - Negative Bedside Urine Urobilinogen - Negative Bedside Urine Nitrite - Negative Bedside Urine Leukocytes +++ 500 Esterase Point of care testing: Point of Care Testing Test Results Negative Urine Dip Bedside Urine Glucose Negative Bedside Urine Bilirubin - Negative Bedside Urine Ketone - Negative Urine Specific [place] 1.020 Bedside Urine Occult Blood - Negative Bedside Urine pH 6.0 Bedside Urine Protein - Negative Bedside Urine Urobilinogen - Negative Bedside Urine Nitrite - Negative Bedside Urine Leukocytes +++ 500 Esterase ECG Data Attestation: I personally reviewed and interpreted this ECG as follows: Interpretation: Sinus rhythm with sinus rhythm rate of 67 P are 154 QRS 88 QTC of 384. No ST elevation or depression is appreciated. MDM Narrative Medical decision making narrative: Patient has increasing abdominal pain consistent with her prior ulcer that is seen on a recent EGD 2 months ago. Lab work does not show any major abnormalities other than a glucose of 104. On recheck patient feels Discharge Plan Departure Patient Disposition: Home Clinical Impression: Acute epigastric pain Discharge Date/Time: 09/21/19 04:31 Instructions: DI for Epigastric Pain Activity Restrictions/Additional Instructions: Follow-up with your sweat box attendant at your appointment this coming week. I would recommend continuing your home medications as prescribed. You may take Tums and/or Maalox if helpful in addition to these medications as needed. You can increase your pepcid to 40mg twice daily but I would discuss with your sweat box attendant. Return to the emergency department for fevers greater 100.4 F, persistent vomiting, black or bloody stools, rapidly worsening abdominal pain, changing nature of her abdominal pain, lightheadedness, passing out, shortness of breath or other new or concerning symptoms.
[2019-09-21] MEDS: MAG HYDROX/ALUMINUM/SIMETH SUS 20 ML, LIDOCAINE VISCOUS 2% 15 ML PO (03:07)
[2019-09-21] MEDS: PANTOPRAZOLE 40 MG VIAL IV (03:07)
[2019-09-21 03:19] LABS: Add Manual Diff / Slide Review NO; Basophils Absolute Auto 100 /uL (0-100); Eosinophils Absolute Auto 200 /uL (0-450); Eosinophils Percent Auto 2.9 % (2-4); Hematocrit 44.8 % (36-46); Hemoglobin 15.6 g/dL (12.0-16.0); Lymphocytes Absolute Auto 1300 /uL (1100-4500); Lymphocytes Percent Auto 20.1 % (25-40); Mean Corpuscular HGB Conc 34.9 % (30-36); Mean Corpuscular Hemoglobin 30.8 PG (26-34); Mean Corpuscular Volume 88.2 fL (80-100); Monocytes Absolute Auto 400 /uL (0-900); Monocytes Percent Auto 6.4 % (3-14); Neutrophils Absolute Auto 4400 /uL (1500-7000); Neutrophils Percent Auto 69.6 % (50-75); Platelet Count 305 X10^3/uL (150-400); Red Blood Cell Count 5.08 X10^6/uL (4.0-5.2); Red Cell Distribution Width 13.1 % (11.6-14.8); White Blood Cell Count 6.4 X10^3/uL (4.5-11.0)
[2019-09-21 03:28] LABS: Alanine Aminotransferase 21 IU/L (9-52); Albumin 4.2 g/dL (3.5-5.0); Albumin Globulin Ratio 1.2 (1.0-2.8); Alkaline Phosphatase 60 U/L (38-126); Aspartate Aminotransferase 20 IU/L (14-36); BUN Creatinine Ratio 18.9 (6-22); Bilirubin Total 0.6 mg/dL (0.2-1.3); Blood Urea Nitrogen 17 mg/dL (7-17); Calcium 9.2 mg/dL (8.4-10.2); Carbon Dioxide 26 mmol/L (22-32); Chloride 106 mmol/L (98-107); Estimated Glomerular Filt Rate > 60.0 mL/min (>60); Globulin 3.4 g/dL (1.7-4.1); Glucose 104 mg/dL (70-100); HEMOLYSIS < 15 (0-50); Lipase 156 U/L (23-300); Potassium 4.1 mmol/L (3.4-5.1); Sodium 138 mmol/L (137-145); Total Protein 7.6 g/dL (6.3-8.2)
[2019-09-21 04:02] LABS: Bacteria Urine Moderate (10-30); Hyaline Casts Urine 0-1/LPF; Mucus Urine 1+ (Negative); RBC Urine 0-1/HPF (0-5/HPF); Squamous Epithelial Cell Urine 10-30 /HPF (0-5/HPF); WBC Urine 30-100/HPF (0-5/HPF)
[2019-09-21 04:03] LABS: Culture Indicated Urine Cult Not Indicated
[2019-09-21 04:29] VITALS: BP 133/96; PULSE 80; RESP 14; O2SAT 96
== END 2019-09-21 04:31 | disposition home or self-care (01) ==
PROVIDERS: Emergency Provider Emergency Medicine
DX: R10.13 Epigastric pain (principal); Z98.890 Other specified postprocedural states
CPT/HCPCS: 36415; 80053; 81003; 81015; 81025; 83690; 85025; 93005; 96374; 99282; 99284; C9113

== ENCOUNTER → 2019-09-29 16:23 | Outpatient (CLI) | payer OTHER, SELFPAY ==
--- NOTE | 2019-09-29 | DI.MRI.S_ITS ---
PROCEDURE: MR KNEE LT WO CON INDICATIONS: Pain in left knee TECHNIQUE: Noncontrast sagittal PD fast spin echo and T2 fast spin echo with fat saturation, sagittal 3-D FLASH with fat saturation; coronal T1 spin echo and PD fast spin echo with fat saturation, and axial PD fast spin echo with fat saturation through the knee. COMPARISON: [facility] [place], CR, XR KNEE ARTHRITIC SERIES LT, 09/16/2019, 15:04. FINDINGS: Image quality: Limited by body habitus. Menisci: The medial and lateral menisci demonstrate normal morphology and internal signal. The meniscal root ligaments appear intact. Cruciate ligaments: The anterior and posterior cruciate ligaments appear intact. Medial structures: The medial collateral ligament appears intact. Visualized portions of the pes anserinus tendons appear normal. A small ganglion cyst measuring 5 mm anteroposterior and extends into the substance of the distal semimembranosus tendon at the tibial insertion site. No abnormal bursal fluid. Lateral structures: The lateral collateral ligament, long and short heads of the biceps femoris tendon appear intact. The popliteus tendon appears normal. Iliotibial band appears normal. Anterior structures: The quadriceps and patellar tendons appear intact. Patellar alignment is normal. No femoral trochlear dysplasia or ventral trochlear prominence. No edema in the infrapatellar fat pad. Bones and cartilage: Mild ill-defined degenerative marrow edema within the posterior nonweightbearing aspect of the medial femoral condyle. There is mild tricompartmental periarticular osteophyte formation. There is mild diffuse articular cartilage loss overlying the weightbearing aspects of the medial femoral condyle and medial tibial plateau. Moderate articular cartilage loss overlies the lateral patellar apex. Severe articular cartilage loss overlies the medial patellar apex. The cartilage of the medial and lateral femorotibial compartments, as well as the patellofemoral compartment, appears normal in thickness. Joint space: There is physiologic knee joint fluid. No Martin's cyst. Normal appearing synovial plicae are incidentally noted. IMPRESSION: 1. Limited examination secondary to body habitus. 2. Tricompartmental osteoarthritis with associated articular cartilage loss. 3. Mild degenerative marrow edema versus contusion within the medial femoral condyle posteriorly. 4. Small knee joint effusion. 5. Small ganglion cyst protruding into the semimembranosus tendon. 6. No evidence of meniscal nor cruciate ligament tear. Dictated by: Max Perdue M.D. on 09/30/2019 at 10:01 Approved by: Max Perdue M.D. on 09/30/2019 at 10:10
== END ==
PROVIDERS: Visit Provider Orthopaedic Surgery
DX: M25.562 Pain in left knee (principal); M17.12 Unilateral primary osteoarthritis, left knee; M25.462 Effusion, left knee; M67.462 Ganglion, left knee
CPT/HCPCS: 73721

== ENCOUNTER → 2020-12-30 11:32 | Outpatient (CLI) | payer OTHER, SELFPAY ==
[2020-12-30 12:46] LABS: Reticulocyte Count, Percent 1.2 % (1.06-2.63)
[2020-12-30 12:54] LABS: RBC Morphology Normal Morphology; Total Cells Counted 100
[2020-12-30 13:00] LABS: Hemoglobin 14.9 g/dL (12.0-16.0); Mean Corpuscular HGB Conc 33.8 % (30-36); Mean Corpuscular Hemoglobin 30.2 PG (26-34); Mean Corpuscular Volume 89.4 fL (80-100); Neutrophils Absolute Manual 4380 /uL (3000-5900); Platelet Count 306 X10^3/uL (150-400); Red Blood Cell Count 4.92 X10^6/uL (4.0-5.2)
== END ==
PROVIDERS: Referring Provider Internal Medicine; Visit Provider Internal Medicine
DX: R71.8 Other abnormality of red blood cells (principal)
CPT/HCPCS: 36415; 81270; 85025; 85045

== ENCOUNTER 2021-05-22 08:31 | Emergency (ER) | payer OTHER, SELFPAY ==
[2021-05-22 09:14] VITALS: BP 132/92; PULSE 112; RESP 24; TEMP 36.9; O2SAT 100
[2021-05-22 12:20] VITALS: BP 138/78; PULSE 119; RESP 24; O2SAT 99
[2021-05-22] MEDS: KETOROLAC 30 MG/ML VIAL IV (12:32)
[2021-05-22] MEDS: ONDANSETRON 4 MG/2 ML INJ IV (12:33)
[2021-05-22] MEDS: SODIUM CHLORIDE 0.9% 1,000 ML 1000 ML IV (12:33)
[2021-05-22 12:42] LABS: Add Manual Diff / Slide Review NO; Basophils Absolute Auto 0 /uL (0-100); Basophils Percent Auto 0.3 % (0-2); Eosinophils Absolute Auto 0 /uL (0-450); Eosinophils Percent Auto 0.1 % (2-4); Hematocrit 44.2 % (36-46); Hemoglobin 15.5 g/dL (12.0-16.0); Lymphocytes Absolute Auto 200 /uL (1100-4500); Lymphocytes Percent Auto 3.2 % (25-40); Mean Corpuscular HGB Conc 35.1 % (30-36); Mean Corpuscular Hemoglobin 31.2 PG (26-34); Monocytes Absolute Auto 200 /uL (0-900); Monocytes Percent Auto 3.2 % (3-14); Neutrophils Absolute Auto 6900 /uL (1500-7000); Neutrophils Percent Auto 93.2 % (50-75); Platelet Count 230 X10^3/uL (150-400); Red Blood Cell Count 4.97 X10^6/uL (4.0-5.2); Red Cell Distribution Width 12.9 % (11.6-14.8); White Blood Cell Count 7.4 X10^3/uL (4.5-11.0)
[2021-05-22 13:01] LABS: Lactate (Lactic Acid) 1.4 mmol/L (0.7-2.1)
[2021-05-22 13:02] LABS: Alanine Aminotransferase 30 IU/L (<35); Albumin Globulin Ratio 1.2 (1.0-2.8); Alkaline Phosphatase 62 U/L (38-126); Aspartate Aminotransferase 27 IU/L (14-36); BUN Creatinine Ratio 11.5 (6-22); Bilirubin Total 1.1 mg/dL (0.2-1.3); Blood Urea Nitrogen 9 mg/dL (7-17); Calcium 8.8 mg/dL (8.4-10.2); Carbon Dioxide 23 mmol/L (22-32); Chloride 102 mmol/L (98-107); Creatine Kinase 77 U/L (30-135); Estimated Glomerular Filt Rate > 60.0 mL/min (>60); Globulin 3.4 g/dL (1.7-4.1); Glucose 117 mg/dL (70-100); HEMOLYSIS < 15 (0-50); Lipase 60 U/L (23-300); Potassium 4.2 mmol/L (3.4-5.1); Sodium 133 mmol/L (137-145); Total Protein 7.4 g/dL (6.3-8.2)
--- NOTE | 2021-05-22 13:11 | ED_ITS ---
HPI - Recheck/Abnormal Lab/Rx General Chief Complaint: Recheck/Abnormal Lab/Rx Stated Complaint: severe muscle cramps, nausea, post 2nd Pfizer vac Time Seen by Provider: 05/22/21 13:11 Source: patient Mode of arrival: Ambulatory Limitations: no limitations History of Present Illness HPI narrative: 41-year-old female who had her 2nd Pfizer vaccination yesterday. She developed muscle cramps overnight, nausea but with no emesis. She feels generally unwell. No fevers or chills. No chest pain or shortness of breath. No cough. No difficulty with breathing. She has not any other GI or urinary symptoms. Patient denies any other medical issues. She states she can not take NSAIDs secondary to ulcers. She states she is allergic to iodine. She states her to our Family has received her vaccinations and did not have such significant symptoms. She states that her arms and legs felt cramped up and like she could not move them this morning and came for evaluation. Related Data Home Medications Medication Instructions Recorded Confirmed No Known Home Medications 12/20/20 05/22/21 Allergies Allergy/AdvReac Type Severity Reaction Status Date / Time iodine Allergy Anaphylaxis Verified 05/22/21 09:18 Review of Systems Review of Systems ROS Unobtainable: All systems reviewed & are unremarkable except as noted in HPI and below Patient History Medical History GERD (gastroesophageal reflux disease) Morbid obesity with BMI of 40.0-44.9, adult Varicose veins of both lower extremities Surgical History History of cholecystectomy History of esophagogastroduodenoscopy (EGD) Social History household members: spouse and family Smoking Status: Never smoker alcohol intake: never Smoking Status: Never smoker alcohol intake frequency: 0-2 drinks per day Substance Use Type: does not use Exam Narrative Exam Narrative: GENERAL: Alert and oriented x three, female in mild distress. Patient is sitting in recliner. HEENT: Head normocephalic, atraumatic, EOMI, pupils reactive, face symmetric, moist mucous membranes NECK: Supple, full range of motion CARDIOVASCULAR: Regular rate and rhythm without murmurs, rubs or gallops. RESPIRATORY: Breath sounds equal bilaterally, no wheezes rales or rhonchi. ABDOMEN: Soft, nontender. Normoactive bowel sounds all 4 quadrants. No guarding or rebound, rigidity, no mass : No CVA tenderness EXTREMITIES: Normal range of motion, no clubbing or edema. Neurovascularly intact. NEUROLOGICAL: Cranial nerves II through XII grossly intact. Moving all extremities SKIN: Warm, dry, no petechiae, no rashes or lesions. Initial Vital Signs Initial Vital Signs: Vital Signs Temperature 98.4 F 05/22/21 09:14 Pulse Rate 112 H 05/22/21 09:14 Respiratory Rate 24 05/22/21 09:14 Blood Pressure 132/92 H 05/22/21 09:14 Pulse Oximetry 100 05/22/21 09:14 Course Orders Ordered: ED Orders 05/22/21 12:35 Complete Blood Count AUTO DIFF Stat Comprehensive Metabolic Panel Stat Lactate (Lactic Acid) Stat Lipase Stat Troponin & CK Cardiac Panel Stat Discontinued Medications Sodium Chloride (Normal Saline 0.9%) 1,000 mls @ 1,000 mls/hr IV BOLUS ONE Stop: 05/22/21 13:21 Last Infusion: 05/22/21 13:42 Dose: 0 mls/hr Documented by: Admin: 05/22/21 12:33 Dose: 1,000 mls/hr Documented by: RANDY Ketorolac Tromethamine (Ketorolac 30 Mg/Ml Vial) 30 mg IV NOW ONE Stop: 05/22/21 12:23 Last Admin: 05/22/21 12:32 Dose: 30 mg Documented by: RANDY Ondansetron HCl (Ondansetron 4 Mg/2 Ml Inj) 4 mg IV NOW ONE Stop: 05/22/21 12:23 Last Admin: 05/22/21 12:33 Dose: 4 mg Documented by: RANDY Vital Signs Vital signs: Vital Signs - 8 hr 05/22/21 12:20 05/22/21 13:45 Pulse Rate 119 H 100 H Respiratory Rate 24 15 Blood Pressure 138/78 132/70 Pulse Oximetry 99 99 MDM - Recheck/Abnormal Lab/Rx Lab Data Attestation: I reviewed the patient's lab results. Result diagrams: 05/22/21 12:35 05/22/21 12:35 Labs: Lab Results 05/22/21 05/22/21 05/22/21 Range/Units 12:35 12:35 12:35 WBC 7.4 (4.5-11.0) X10^3/uL RBC 4.97 (4.0-5.2) X10^6/uL Hgb 15.5 (12.0-16.0) g/dL Hct 44.2 (36-46) % MCV 89.0 (80-100) fL MCH 31.2 (26-34) PG MCHC 35.1 (30-36) % RDW 12.9 (11.6-14.8) % Plt Count 230 (150-400) X10^3/uL Neut % (Auto) 93.2 H (50-75) % Lymph % (Auto) 3.2 L (25-40) % [place] % (Auto) 3.2 (3-14) % Eos % (Auto) 0.1 L (2-4) % Baso % (Auto) 0.3 (0-2) % Neut # (Auto) 6900 (5525-5000) /uL Lymph # (Auto) 200 L (4913-8623) /uL [place] # (Auto) 200 (0-900) /uL Eos # (Auto) 0 (0-450) /uL Baso # (Auto) 0 (0-100) /uL Sodium 133 L (137-145) mmol/L Potassium 4.2 (3.4-5.1) mmol/L Chloride 102 (98-107) mmol/L Carbon Dioxide 23 (22-32) mmol/L BUN 9 (7-17) mg/dL Creatinine 0.78 (0.52-1.04) mg/dL Estimated GFR > 60.0 (>60) mL/min BUN/Creatinine Ratio 11.5 (6-22) Glucose 117 H (70-100) mg/dL Lactate 1.4 (0.7-2.1) mmol/L Calcium 8.8 (8.4-10.2) mg/dL Total Bilirubin 1.1 (0.2-1.3) mg/dL AST 27 (14-36) IU/L ALT 30 (<35) IU/L Alkaline Phosphatase 62 (38-126) U/L Total Creatine Kinase 77 (30-135) U/L CK-MB (CK-2) TNP CK-MB (CK-2) Rel Index TNP Troponin I < 0.012 (0.01-0.034) ng/mL Total Protein 7.4 (6.3-8.2) g/dL Albumin 4.0 (3.5-5.0) g/dL Globulin 3.4 (1.7-4.1) g/dL Albumin/Globulin Ratio 1.2 (1.0-2.8) Lipase 60 (23-300) U/L MDM Narrative Medical decision making narrative: 41-year-old female with symptoms consistent with her 2nd COVID vaccination. Patient's labs are reassuring. Her vitals shows slightly tachycardic improved with fluids. Plan for Tylenol for symptoms. Patient does not do well with ibuprofen. All questions were answered and flores moore discharged home. Return precautions discussed. Discharge Plan Departure Patient Disposition: Home Clinical Impression: Vaccine reaction Activity Restrictions/Additional Instructions: Your symptoms today are consistent with hives or vaccination and typically people are much more uncomfortable and have more symptoms after this 2nd vaccine. I would call this reaction but not an allergic reaction. You may take Tylenol up to a 1000 mg every 8 hours as needed for symptoms. Make sure to hydrate well. You may develop fevers this is not atypical in the 1st 24-48 hours. Please return for fevers that do not respond to Tylenol, lightheaded or passing out, new chest pain, shortness of breath, persistent vomiting, black or bloody stool, rashes or skin changes other new or concerning symptoms. Prescriptions: No Action No Known Home Medications RF: 0
[2021-05-22 13:13] LABS: Troponin I < 0.012 ng/mL (0.01-0.034)
[2021-05-22 13:45] VITALS: BP 132/70; PULSE 100; RESP 15; O2SAT 99
== END 2021-05-22 13:51 | disposition home or self-care (01) ==
PROVIDERS: Emergency Provider Emergency Medicine
DX: R25.2 Cramp and spasm (principal); R00.0 Tachycardia, unspecified; R11.0 Nausea; T50.B95A Adverse effect of other viral vaccines, initial encounter
CPT/HCPCS: 36415; 80053; 82550; 83605; 83690; 84484; 85025; 96361; 96374; 96375; 99283; 99284; J1885; J2405

== ENCOUNTER → 2022-03-20 08:36 | Outpatient (CLI) | payer OTHER, SELFPAY ==
[2022-03-20 09:56] LABS: Add Manual Diff / Slide Review NO; Basophils Absolute Auto 0 /uL (0-100); Basophils Percent Auto 0.7 % (0-2); Eosinophils Absolute Auto 100 /uL (0-450); Eosinophils Percent Auto 1.9 % (2-4); Hematocrit 43.6 % (36-46); Hemoglobin 15.5 g/dL (12.0-16.0); Lymphocytes Absolute Auto 1200 /uL (1100-4500); Lymphocytes Percent Auto 20.8 % (25-40); Mean Corpuscular HGB Conc 35.6 % (30-36); Mean Corpuscular Hemoglobin 30.9 PG (26-34); Mean Corpuscular Volume 86.8 fL (80-100); Monocytes Absolute Auto 300 /uL (0-900); Monocytes Percent Auto 6.2 % (3-14); Neutrophils Absolute Auto 3900 /uL (1500-7000); Neutrophils Percent Auto 70.4 % (50-75); Platelet Count 267 X10^3/uL (150-400); Red Blood Cell Count 5.02 X10^6/uL (4.0-5.2); Red Cell Distribution Width 12.8 % (11.6-14.8); White Blood Cell Count 5.6 X10^3/uL (4.5-11.0)
[2022-03-20 10:21] LABS: Alanine Aminotransferase 37 IU/L (<35); Albumin 4.3 g/dL (3.5-5.0); Albumin Globulin Ratio 1.3 (1.0-2.8); Alkaline Phosphatase 61 U/L (38-126); Aspartate Aminotransferase 31 IU/L (14-36); BUN Creatinine Ratio 11.1 (6-22); Bilirubin Total 0.8 mg/dL (0.2-1.3); Blood Urea Nitrogen 12 mg/dL (7-17); Carbon Dioxide 27 mmol/L (22-32); Chloride 106 mmol/L (98-107); Cholesterol 192 mg/dL (140-199); Estimated Glomerular Filt Rate > 60 mL/min (>60); Globulin 3.2 g/dL (1.7-4.1); Glucose 92 mg/dL (70-100); HDL Cholesterol 47 mg/dL (40-60); HEMOLYSIS < 15 (0-50); LDL Cholesterol Calculated 122 mg/dL (<100); Potassium 4.5 mmol/L (3.4-5.1); Sodium 141 mmol/L (137-145); Total Protein 7.5 g/dL (6.3-8.2); Triglycerides 114 mg/dL (35-150)
[2022-03-20 10:46] LABS: TSH w/ Reflex to FT4 1.28 uIU/mL (0.47-4.68)
== END ==
PROVIDERS: PCP Internal Medicine; Referring Provider Internal Medicine; Visit Provider Internal Medicine
DX: R71.8 Other abnormality of red blood cells (principal); K20.0 Eosinophilic esophagitis; R53.83 Other fatigue
CPT/HCPCS: 36415; 80053; 80061; 84443; 85025

== ENCOUNTER 2022-05-31 14:10 | Emergency (ER) | payer OTHER, SELFPAY ==
[2022-05-31 14:16] VITALS: BP 141/100; PULSE 87; RESP 15; TEMP 36.5; O2SAT 99; BMI 41.7
--- NOTE | 2022-05-31 15:21 | PC.NURSE ---
Right lower facial swelling, also noted inside mouth. Tolerating secretions, maintaining patent airway, easy work of breathing. Pain to right side facial area, tingling up to forehead, blurriness in right eye. Reports recent history of GI issues and plans for dental work r/t the GI issues breaking down her teeth.
--- NOTE | 2022-05-31 16:02 | ED_ITS ---
HPI - Skin/Abscess/Foreign Bdy <NAKIA Corrales - Last Filed: 05/31/22 19:04> General Chief complaint: Skin/Abscess/Foreign Body Stated complaint: Numbeness and Swelling in Face, Nausea Time Seen by Provider: 05/31/22 15:39 Source: patient Mode of arrival: Ambulatory Limitations: no limitations History of Present Illness HPI narrative: This is a 42-year-old female presents the emergency department with concern about right facial swelling and tenderness which started last night, endorses some nausea and numbness to her right face. She states that she has a long history of dental decay, gingivitis, and poor dentition and this could be a dental infection but she denies any dental pain, oral swelling, lesions or tenderness inside her mouth. Patient denies any recent fever chills, states that last night she a small bump which was near her nose that started to swell today, she went to the walk-in clinic and was prescribed cephalexin q.i.d. x7 days for presumed cellulitis. Patient has not had any doses of this yet but came to the emergency department for evaluation of the swelling in her right face. She denies any oral swelling, difficulty swallowing, shortness of breath, eye pain, facial weakness or other symptoms. She denies any nasal drainage, URI symptoms, fatigue, or other. Related Data Home Medications Medication Instructions Recorded Confirmed famotidine 20 mg tablet 20 mg PO DAILY 02/08/22 05/31/22 omeprazole 40 mg capsule,delayed 40 mg PO BID 02/08/22 05/31/22 release Previous Rx's Medication Instructions Recorded cephalexin 500 mg capsule 500 mg PO QID 7 days #28 caps 05/31/22 Allergies Allergy/AdvReac Type Severity Reaction Status Date / Time iodine Allergy Anaphylaxis Verified 05/31/22 14:18 Review of Systems <NAKIA Corrales - Last Filed: 05/31/22 19:04> Review of Systems Narrative: General: denies fever, chills, malaise, sweats, fatigue Head/Neck: denies headache, neck pain, dizziness, endorses right facial swelling without oral involvement Eyes: denies visual changes, eye pain Cardio: denies chest pain, palpitations, edema Respiratory: denies dyspnea, cough, orthopnea GI: denies abdominal pain, nausea, vomiting, or diarrhea : denies dysuria, hematuria, urinary retention, frequency or incontinence MSK: denies joint pain, muscle weakness Skin: denies rash, itching, skin lesions or other Neuro: denies numbness, tingling Patient History <NAKIA Corrales - Last Filed: 05/31/22 19:04> Medical History Allergies (~1979) Hernandez's esophagus (~01/2022) Carpal tunnel syndrome (~2014) Chronic back pain (~2003) Eosinophilic esophagitis Fractures (~2001) Gastric ulcer (~2019) GERD with esophagitis History of adenomatous polyp of colon Morbid obesity with BMI of 40.0-44.9, adult Varicose veins of both lower extremities Surgical History Anesthesia History of cholecystectomy (~2009) History of ear surgery (~1988) History of esophagogastroduodenoscopy (EGD) History of live Family History Father Hypertension Mother Esophageal cancer Grandfather Cancer Grandmother Diabetes mellitus History of heart disease Grandfather Cancer Social History household members: spouse and family Smoking Status: Never smoker alcohol intake: never Smoking Status: Never smoker alcohol intake frequency: holidays/special occasions only Substance Use Type: does not use Exam <NAKIA Corrales - Last Filed: 05/31/22 19:04> Narrative Exam Narrative: Independently reviewed vitals signs and nursing notes. General: cooperative, comfortable, in no acute distress, well groomed Head: atraumatic, symmetrical facial expressions, tenderness and edema notable to the right patient's nose below her orbital bone but above upper jaw, no fluctuance, palpable mass, visible abscess from her oropharynx or other. This appears most like cellulitis at this point. Neck: supple Eyes: equal round and reactive, EOMI, conjunctiva normal Nose: nares patent, no rhinorrhea Mouth/Throat: moist mucus membranes without any oral pharyngeal edema, exudate, wound or other, she has significant dental decay but no erythematous or infectious appearing areas. Cardiovascular: regular rate and rhythm, no peripheral edema, warm extremities Respiratory: normal effort, able to speak in complete sentences, no audible wheezing, stridor, or rales. No retractions or tachypnea. GI: abdomen soft, nontender to palpation, nondistended, no masses, no exquisite tenderness with exam, without guarding or rebound. MSK: moves all extremities, neurovascularly intact, no weakness, normal tone Skin: brisk capillary refill, no rash, no erythema Neuro: normal speech and cognition, A&O x3 Psych: mental status is grossly normal, congruent mood, normal affect, pleasant and cooperative Initial Vital Signs Initial Vital Signs: Vital Signs Temperature 97.7 F 05/31/22 14:16 Pulse Rate 87 05/31/22 14:16 Respiratory Rate 15 05/31/22 14:16 Blood Pressure 141/100 H 05/31/22 14:16 Pulse Oximetry 99 05/31/22 14:16 Oxygen Delivery Method 05/31/22 14:16 <Gracie Manley DO - Last Filed: 06/02/22 07:12> Initial Vital Signs Initial Vital Signs: Vital Signs Temperature 97.7 F 05/31/22 14:16 Pulse Rate 87 05/31/22 14:16 Respiratory Rate 15 05/31/22 14:16 Blood Pressure 141/100 H 05/31/22 14:16 Pulse Oximetry 99 05/31/22 14:16 Oxygen Delivery Method 05/31/22 14:16 Course <NAKIA Corrales - Last Filed: 05/31/22 19:04> Vital Signs Vital signs: Vital Signs - 8 hr 05/31/22 14:16 Temperature 97.7 F Pulse Rate 87 Respiratory Rate 15 Blood Pressure 141/100 H Pulse Oximetry 99 Oxygen Delivery Method Room Air <Gracie Manley DO - Last Filed: 06/02/22 07:12> Vital Signs Vital signs: Vital Signs - 8 hr 05/31/22 14:16 Temperature 97.7 F Pulse Rate 87 Respiratory Rate 15 Blood Pressure 141/100 H Pulse Oximetry 99 Oxygen Delivery Method Room Air MDM - Skin/Abscess/Foreign Bdy <NAKIA Corrales - Last Filed: 05/31/22 19:04> MDM Narrative Medical decision making narrative: This is a pleasant 42-year-old female who presents to the emergency department after going to the walk-in clinic for concern about swelling in her face which started last night. Patient denies any traumatic injury, denies any current oral or dental infections, denies any oral or dental pain, denies any significant pain to her face but endorses swelling and redness to her right cheek. She denies any fevers, shortness of breath, chest pain, abdominal pain, vomiting, chills or other. She was prescribed cephalexin q.i.d. x7 days but has not taking any doses yet. Patient is nontoxic appearing, without abnormal vital signs, as this appears like cellulitis verses potential dental infection, encourage patient to start her antibiotics, treat the swelling in her face with ice packs, anti-inflammatories, and to return to the emergency department if she has any worsening. Patient denies any history of MRSA, denies any difficulty swallowing, denies any eye pain, facial weakness, she denies tenderness over her temples, or any other pain or symptoms. Patient is appropriate and amenable to discharge home. Vital signs are stable on repeat examination is unremarkable. Patient has been informed of results. Patient has been given strict return to ER precautions for any new or worsening symptoms. Patient understands to follow up closely with outpatient providers as instructed. Patient understands plan and agrees to discharge home. All questions and concerns answered at this time. Discharge Plan Departure Patient Disposition: Home Clinical Impression: Cellulitis Qualifiers: Site of cellulitis: face Qualified Code(s): L03.211 - Cellulitis of face Instructions: Cellulitis, DI for Dental Pain Activity Restrictions/Additional Instructions: *You have been diagnosed with swelling, redness and concern for skin infection verses dental infection to the right-side of your face. Please take your medication as it is prescribed and evaluate how your feeling tomorrow for any worsening. You may want to sleep with your head slightly elevated if your face is swollen. Please take your GERD medicine at least 1 hour away from your antibiotics. If you do not have any improvement of your symptoms after two days please return to the emergency department or go to the walk-in clinic for another evaluation. This antibiotic will not work well on a dental infection, it should treat infection of the skin well though. Take Tylenol or ibuprofen as needed for your pain or fever, stay hydrated, call and make an appointment with your dentist for evaluation of this. You can use cool compresses to help reduce some of the swelling. *What to do: *Please continue to take your regular medications as directed. [ ] New medication prescriptions sent to your pharmacy: [ ] [ ] New medication written as a paper prescription [x ] No new medications given *Please follow up with your primary care provider in 2-3 days, call for an appointment. Let them know you were seen in the Emergency Department and that we asked that you be seen for follow-up. We will electronically transmit a record of today's note if your PCP is in our system *If you do not have a primary care provider please contact [phone] to establish care with one of the [facility] primary care providers. *Return to Emergency Department if you should have any new, worsening or concerning symptoms, such as [fever greater than 101F, chills, worsening pain, persistent vomiting or other bothersome symptoms] Prescriptions: No Action cephalexin 500 mg capsule 500 mg PO QID 7 Days Qty: 28 0RF omeprazole 40 mg capsule,delayed release(DR/EC) 40 mg PO BID famotidine 20 mg tablet 20 mg PO DAILY Referrals: Anival Maradiaga MD [Primary Care Provider] - Visit Report Forms: Patient Portal/API <Gracie Manley DO - Last Filed: 06/02/22 07:12> Cosign ED Attending Sha Attestation: I was immediately available in the department for consultation. Documentation has been reviewed. I agree with assessment and plan.
== END 2022-05-31 16:04 | disposition home or self-care (01) ==
PROVIDERS: Emergency Provider Nurse Practitioner Critical Care Medicine; PCP Internal Medicine
DX: L03.211 Cellulitis of face (principal)
CPT/HCPCS: 99281

== ENCOUNTER 2022-06-02 08:27 | Emergency (ER) | payer OTHER, SELFPAY ==
[2022-06-02 09:01] VITALS: BP 146/99; PULSE 85; RESP 18; TEMP 36.4; O2SAT 100; BMI 40.1
[2022-06-02] MEDS: LIDOCAINE 2% W/EPI INJ 1 ML INJ (09:15)
--- NOTE | 2022-06-02 09:26 | ED.DENTAL ---
HPI - Dental/Oral General Chief complaint: Dental/Oral Stated complaint: right side dental infection pain swelling worse Time Seen by Provider: 06/02/22 09:05 Source: patient Mode of arrival: Ambulatory History of Present Illness HPI Narrative: Patient is a 42-year-old female who presents with ongoing and worsening right facial swelling. She was seen evaluated here and walk-in clinic 2 days ago. Thought to possibly be due to cellulitis versus dental. She was placed on Keflex. She feels like she has worsening swelling worsening facial swelling and definitely mouth swelling. Her right upper molar area Related Data Home Medications Medication Instructions Recorded Confirmed famotidine 20 mg tablet 20 mg PO DAILY 02/08/22 05/31/22 omeprazole 40 mg capsule,delayed 40 mg PO BID 02/08/22 05/31/22 release Previous Rx's Medication Instructions Recorded cephalexin 500 mg capsule 500 mg PO QID 7 days #28 caps 05/31/22 amoxicillin 875 mg-potassium 1 tab PO BID #14 tabs 06/02/22 clavulanate 125 mg tablet hydrocodone 5 mg-acetaminophen 325 1 tab PO Q6H PRN pain #10 tabs 06/02/22 mg tablet Allergies Allergy/AdvReac Type Severity Reaction Status Date / Time iodine Allergy Anaphylaxis Verified 05/31/22 14:18 Review of Systems Review of Systems Narrative: GENERAL: Denies chills,fever HEENT: See HPI RESPIRATORY: Denies dyspnea, cough, wheezing CARDIOVASCULAR: Denies chest pain, palpitations GASTROINTESTINAL: Denies nausea, vomiting MUSCULOSKELETAL: Denies extremity pain, injury SKIN: No rash, no laceration, no pruritus NEUROLOGIC: Denies weakness, dizziness, headache, numbness 8 point review of systems is negative except for those stated above and HPI Patient History Medical History Allergies (~1979) Hernandez's esophagus (~01/2022) Carpal tunnel syndrome (~2014) Chronic back pain (~2003) Eosinophilic esophagitis Fractures (~2001) Gastric ulcer (~2019) GERD with esophagitis History of adenomatous polyp of colon Morbid obesity with BMI of 40.0-44.9, adult Varicose veins of both lower extremities Surgical History Anesthesia History of cholecystectomy (~2009) History of ear surgery (~1988) History of esophagogastroduodenoscopy (EGD) History of live Family History Father Hypertension Mother Esophageal cancer Grandfather Cancer Grandmother Diabetes mellitus History of heart disease Grandfather Cancer Social History household members: spouse and family Smoking Status: Never smoker alcohol intake: never Smoking Status: Never smoker alcohol intake frequency: holidays/special occasions only Substance Use Type: does not use Exam Initial Vital Signs Initial Vital Signs: Vital Signs Temperature 97.5 F L 06/02/22 09:01 Pulse Rate 85 06/02/22 09:01 Respiratory Rate 18 06/02/22 09:01 Blood Pressure 146/99 H 06/02/22 09:01 Pulse Oximetry 100 06/02/22 09:01 Oxygen Delivery Method 06/02/22 09:01 GENERAL: Well-appearing, well-nourished and in no acute distress. MOUTH: Dental abscess, see diagram poor dentition throughout mouth multiple dental. Right-sided facial swelling without erythema no trismus CARDIOVASCULAR: peripheral pulses in tact, cap refill <2 sec RESPIRATORY: No respiratory distress, speaks in full sentences without difficulty EXTREMITIES: Normal range of motion, no clubbing or edema. Neurovascularly intact NEUROLOGICAL: Cranial nerves II through XII grossly intact. Normal gait and speech. SKIN: Warm, dry, no petechiae, no rashes or lesions. [facility] Adult Head Mouth: 1. Large dental abscess noted. Poor dentition throughout mouth Procedures Abscess I/D I&D #1: Site: oral Side (if applicable): right Local Anesthetic: lidocaine 1% and with epi Amount of anesthesia used (mL): 2 Technique: needle aspiration Amount of fluid expressed (mL): 3 Irrigation: No Course Orders Ordered: Discontinued Medications Lidocaine/Epinephrine (Lidocaine 2% W/Epi Inj) 1 ml INJ INTRA-OP ONE Stop: 06/02/22 09:11 Last Admin: 06/02/22 09:15 Dose: 1 ml Documented By: RAMESH Vital Signs Vital signs: Vital Signs - 8 hr 06/02/22 09:01 Temperature 97.5 F L Pulse Rate 85 Respiratory Rate 18 Blood Pressure 146/99 H Pulse Oximetry 100 Oxygen Delivery Method Room Air MDM - Dental/Oral MDM Narrative Medical decision making narrative: Patient actually had quite a large dental abscess. A large amount of fluid was drained. Overall feeling better. Will change up her antibiotics from Keflex to amoxicillin. She is currently afebrile. Discharge Plan Departure Patient Disposition: Home Clinical Impression: Abscess, dental Instructions: Tooth Abscess Activity Restrictions/Additional Instructions: *You have been diagnosed with a dental abscess *What to do: You should start feeling better nausea stress has strain. Continue to ice as needed *Continue to take medications as directed--> SENT TO [facility] Stop taking cephalexin Start taking Augmentin twice daily for 7 days [place] 1 tablet every 6 hours only if needed for severe pain Motrin 600 mg every 6 hours if needed for [id number] pain and swelling *Follow up with your primary care provider in 2-3 days or call [phone] *Return to ER if you should have increasing pain, swelling, redness, fever or any new, worsening or concerning symptoms CONTROLLED SUBSTANCE DISCHARGE (Narcotoic/benzodiazepine/Flexeril/Phenergan) 1. You have been prescribed narcotic medications, it does have acetaminophen/Tylenol/paracetamol in it, DO NOT TAKE MORE THAN 4,00mg in 24 hours of Tylenol. TRAMADOL DOES NOT CONTAIN TYLENOL 2. Please understand that we cannot provide further refills of narcotics, benzodiazepines or controlled substances through the ED and her pain management will need to be through your provider. 3. While on these medications you cannot drive or operate heavy machinery. 4. You cannot sign legal documents or perform any duties such as this. 5. As long as you're taking opiate pain medications he should also be taking a stool softener such as Colace, Dulcolax, MiraLAX or prune juice, to help avoid constipation. Prescriptions: New hydrocodone-acetaminophen 5-325 mg tablet 1 tab PO Q6H PRN (Reason: pain) Qty: 10 0RF amoxicillin-pot clavulanate 875-125 mg tablet 1 tab PO BID Qty: 14 0RF No Action cephalexin 500 mg capsule 500 mg PO QID 7 Days Qty: 28 0RF omeprazole 40 mg capsule,delayed release(DR/EC) 40 mg PO BID famotidine 20 mg tablet 20 mg PO DAILY Referrals: Anival Maradiaga MD [Primary Care Provider] - Visit Report Forms: Patient Portal/API
== END 2022-06-02 09:54 | disposition home or self-care (01) ==
PROVIDERS: Emergency Provider Emergency Medicine; PCP Internal Medicine
DX: K04.7 Periapical abscess without sinus (principal)
CPT/HCPCS: 10060; 99282; 99283

== ENCOUNTER → 2022-09-11 10:21 | Outpatient (CLI) | payer OTHER, SELFPAY ==
[2022-09-11 12:10] LABS: BUN Creatinine Ratio 12.9 (6-22); Blood Urea Nitrogen 11 mg/dL (7-17); Calcium 8.7 mg/dL (8.4-10.2); Carbon Dioxide 26 mmol/L (22-32); Chloride 103 mmol/L (98-107); Creatine Kinase 81 U/L (30-135); Estimated Glomerular Filt Rate > 60 mL/min (>60); Glucose 82 mg/dL (70-100); HEMOLYSIS < 15 (0-50); Magnesium 2.1 mg/dL (1.6-2.3); Potassium 4.9 mmol/L (3.4-5.1); Sodium 138 mmol/L (137-145)
== END ==
PROVIDERS: PCP Internal Medicine; Referring Provider Internal Medicine; Visit Provider Internal Medicine
DX: H73.899 Other specified disorders of tympanic membrane, unspecified ear (principal)
CPT/HCPCS: 36415; 80048; 82550; 83735

== ENCOUNTER → 2022-10-11 15:37 | Outpatient (CLI) | payer OTHER, SELFPAY ==
--- NOTE | 2022-10-11 15:37 | DI.RAD.S_ITS ---
PROCEDURE: XR KNEE RT 3V INDICATIONS: knee pain TECHNIQUE: 3 views of the knee were acquired. COMPARISON: MR, MR KNEE LT WO CON, 09/29/2019, 16:56. FINDINGS: Bones: No fractures or dislocations. No suspicious bony lesions. Minimal medial compartment narrowing. Soft tissues: Mild joint effusion. No suspicious soft tissue calcifications. IMPRESSION: No visualized acute fracture or dislocation. However, if clinical concern and/or pain persist, short interval imaging followup in 7-10 days is recommended, as occult injury cannot be definitively excluded. Dictated by: Nilsa Tellez M.D. on 10/11/2022 at 17:29 Approved by: Nilsa Tellez M.D. on 10/11/2022 at 17:29
== END ==
PROVIDERS: PCP Internal Medicine; Referring Provider Internal Medicine; Visit Provider Internal Medicine
DX: M25.561 Pain in right knee (principal); M25.461 Effusion, right knee
CPT/HCPCS: 73562

== ENCOUNTER → 2022-10-24 08:16 | Outpatient (CLI) | payer OTHER, SELFPAY ==
--- NOTE | 2022-10-24 | DI.MRI.S_ITS ---
PROCEDURE: MR KNEE RT WO CON INDICATIONS: Unspecified internal derangement of right knee TECHNIQUE: Noncontrast sagittal PD fast spin echo and T2 fast spin echo with fat saturation, sagittal 3-D FLASH with fat saturation; coronal T1 spin echo and PD fast spin echo with fat saturation, and axial PD fast spin echo with fat saturation through the knee. COMPARISON: [facility], CR, XR KNEE RT 3V, 10/11/2022, 15:48. FINDINGS: Image quality: Excellent. Anterior Cruciate Ligament: Intact. Posterior Cruciate Ligament: Intact. Medial Collateral Ligament: Intact. Lateral Collateral Ligament: Intact. Medial Meniscus: There is horizontal oblique tearing of the body of the medial meniscus that likely extends into the posterior horn and communicates with the inner third of the tibial articular surface. There is suspected partial tearing of the posterior root attachment of the medial meniscus. Lateral Meniscus: Intact. Medial and Lateral Tendons: The semimembranosus tendon insertions and meniscocapsular junction appear intact. Visualized portions of the pes anserinus tendons appear normal. No abnormal bursal fluid. The long and short heads of the biceps femoris tendon appear intact. The popliteus tendon appears intact. No signs of posterolateral corner injury. Iliotibial band appears normal. Anterior Structures: The quadriceps and patellar tendons appear intact. No patellar subluxation. No femoral trochlear dysplasia or ventral trochlear prominence. No edema in the infrapatellar fat pad. Bones: No acute trabecular bone injury or fracture. Medial Femorotibial Cartilage: There is multifocal moderate to high-grade cartilage loss in the medial compartment with suspected areas of full-thickness cartilage loss in the central weight-bearing portion of the medial femoral condyle with subchondral edema and marginal osteophytes. Lateral Femorotibial Cartilage: Mild partial-thickness surface irregularity in the weight-bearing portion of the lateral femorotibial compartment with small marginal osteophyte formation. Patellofemoral Cartilage: Moderate partial-thickness cartilage loss at the medial and lateral patellar facets and median ridge of the patella as well as at the trochlear groove and lateral femoral trochlea. Soft Tissues: There is a medium-sized joint effusion. A moderate medial popliteal cyst is seen with mild adjacent edema that may indicate prior cyst rupture. Fluid is seen tracking along the popliteus tendon sheath. The musculature surrounding the knee is normal in bulk. IMPRESSION: 1. Complex tearing of the medial meniscus with a horizontal oblique component at the meniscal body extending to the inner third of the tibial articular surface and probable partial tearing of the posterior root attachment. 2. 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 Grade 2-3 chondromalacia is seen in the lateral and anterior compartments. Tricompartmental marginal osteophytes are present. 3. Cruciate and collateral ligaments are intact. No acute trabecular bone injury. 4. Moderate joint effusion. Moderate medial popliteal cyst with signs of prior cyst rupture. Approved by: Xu Jose M.D. on 10/24/2022 at 13:43
== END ==
PROVIDERS: PCP Internal Medicine; Referring Provider Orthopaedic Surgery; Visit Provider Orthopaedic Surgery
DX: S83.231A Complex tear of medial meniscus, current injury, right knee, initial encounter (principal); M94.261 Chondromalacia, right knee; M25.461 Effusion, right knee; M71.21 Synovial cyst of popliteal space [Baker], right knee; M23.91 Unspecified internal derangement of right knee
CPT/HCPCS: 73721

== ENCOUNTER 2022-12-25 20:28 | Emergency (ER) | payer OTHER, SELFPAY ==
[2022-12-25 20:39] VITALS: BP 144/104; PULSE 113; RESP 18; TEMP 36.9; O2SAT 98; BMI 41.5
[2022-12-26 00:20] VITALS: BP 130/94; PULSE 123; O2SAT 98
--- NOTE | 2022-12-26 00:20 | ED.GENADULT ---
HPI - General Adult General Chief complaint: Upper Respiratory Symptoms Stated complaint: covid +, difficulty breathing, cough Time Seen by Provider: 12/26/22 00:19 Source: patient Mode of arrival: Ambulatory History of Present Illness HPI narrative: 42-year-old woman with significant reflux disease, single COVID vaccine, active COVID disease in October of 2021 presents with fever, cough, chills and gasping after she is done coughing to the point that it is frightening for. 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 She is not noticing wheezing and oxygen saturations remain in the 90% range. She comes in tonight because the cough is so severe. She has not tried any cough suppressants and found that 3 Tylenol ?knocked her out?. She is had no vomiting abdominal pain or diarrhea. Does have low-grade headaches and complains of being so cold she can not get warm even though she knows she has a temperature. Related Data Home Medications Medication Instructions Recorded Confirmed famotidine 20 mg tablet 20 mg PO DAILY 02/08/22 12/25/22 omeprazole 40 mg capsule,delayed 40 mg PO BID 02/08/22 12/25/22 release Previous Rx's Medication Instructions Recorded cyclobenzaprine 5 mg tablet 5 mg PO TID PRN muscle spasm #20 10/08/22 tabs benzonatate 200 mg capsule 200 mg PO BID-TID PRN cough #14 12/26/22 caps Allergies Allergy/AdvReac Type Severity Reaction Status Date / Time iodine Allergy Anaphylaxis Verified 12/25/22 20:41 Review of Systems Review of Systems Narrative: Remainder of complete review of systems is otherwise unremarkable except for that included in the HPI. Patient History Medical History Allergies (~1979) Hernandez's esophagus (~01/2022) Carpal tunnel syndrome (~2014) Chronic back pain (~2003) Eosinophilic esophagitis Fractures (~2001) Gastric ulcer (~2019) GERD with esophagitis History of adenomatous polyp of colon Morbid obesity with BMI of 40.0-44.9, adult Varicose veins of both lower extremities Surgical History Anesthesia History of cholecystectomy (~2009) History of ear surgery (~1988) History of esophagogastroduodenoscopy (EGD) History of live Family History Father Hypertension Mother Esophageal cancer Grandfather Cancer Grandmother Diabetes mellitus History of heart disease Grandfather Cancer Social History household members: spouse and family Smoking Status: Never smoker alcohol intake: never Smoking Status: Never smoker alcohol intake frequency: holidays/special occasions only Substance Use Type: does not use Exam Initial Vital Signs Initial Vital Signs: Vital Signs Temperature 98.4 F 12/25/22 20:39 Pulse Rate 113 H 12/25/22 20:39 Respiratory Rate 18 12/25/22 20:39 Blood Pressure 144/104 H 12/25/22 20:39 Pulse Oximetry 98 12/25/22 20:39 Oxygen Delivery Method 12/25/22 20:39 General: Appears to feel generally unwell with cough notable but Able to give a complete and coherent history all speaking in full sentences Well-nourished well-developed HEENT: Moist mucous membranes, normal sclera with reactive pupils, Respiratory: Lungs are clear to auscultation, no wheezing no rales no rhonchi. Full and symmetrical air movement Cardiac: Tachycardic but otherwise Regular rate and rhythm no murmurs no bruits Abdomen: Soft, nontender, good bowel tones, no flank pain Skin: Mildly diaphoretic,, no rashes Neurologic: Grossly neurologically intact with no obvious asymmetries or abnormalities Extremities: No trauma, well perfused Psych: Cooperative, appropriate insight and affect Course Vital Signs Vital signs: Vital Signs - 8 hr 12/25/22 20:39 Temperature 98.4 F Pulse Rate 113 H Respiratory Rate 18 Blood Pressure 144/104 H Pulse Oximetry 98 Oxygen Delivery Method Room Air Medical Decision Making MDM Narrative Medical decision making narrative: CC: Fever cough, testing positive for COVID Complicating co-morbidities: Reflux Corroborating data: Data collected from: patient, Social determinants of health that may influence the patients condition: Single mother Differential considered: Viral infection, bacterial pneumonia, acute coronary syndrome, pulmonary embolism, pneumothorax Exam documented above, pertinent findings include: Normal lung exam, no overt volume overload appreciated. No consolidated findings no wheeze. Saturations are 98%. She does have a persistent and trying cough. Treatments: Oral Tessalon for cough suppressant and ibuprofen and Tylenol for fevers and myalgias Discussion: Discussed indications for hospitalization including severe respiratory distress and hypoxia neither of which she has currently. There is no evidence of bacterial superinfection. She has not yet tried any medications for cough suppressant and will be given a prescription for Tessalon Perles. Recommended combination of ibuprofen and Tylenol, reassured her that as this is her 2nd active infection and she has had a single vaccine that she likely is not going to progress to need hospitalization but will still likely have 5-7 days of cough, fevers and chills. At this point, there is no indication for additional workup or hospitalization. Questions are answered and patient is safe for discharge Disposition: see below, along with detailed discharge instructions that have been reviewed with patient as well as indications for ED re-evaluation and additional outpatient follow up Discharge Plan Departure Patient Disposition: Home Clinical Impression: COVID-19 Instructions: DI for Viral Upper Respiratory Infection -- Adult Activity Restrictions/Additional Instructions: Thank you for coming in today I am sorry that you have COVID again. Fortunately, your oxygen saturations remain in the 98% range. At this point, treating your cough and the fevers and chills while your body heals itself is going to be most appropriate. For the cough, I have given you a prescription for Tessalon Perles. Using 400 mg of ibuprofen (2 [id number] pills) and 1 Tylenol every 6 hours can be very helpful in controlling pain. [facility] [place] If you find that you are getting worse or develop any new symptoms, please feel free to return to the emergency department for further evaluation. Prescriptions: New benzonatate 200 mg capsule 200 mg PO BID-TID PRN (Reason: cough) Qty: 14 0RF No Action cyclobenzaprine 5 mg tablet 5 mg PO TID PRN (Reason: muscle spasm) Qty: 20 0RF omeprazole 40 mg capsule,delayed release(DR/EC) 40 mg PO BID famotidine 20 mg tablet 20 mg PO DAILY Referrals: Anival Maradiaga MD [Primary Care Provider] - Stand Alone Forms: Patient Portal/API
[2022-12-26] MEDS: IBUPROFEN 400 MG TABLET PO (00:36)
[2022-12-26] MEDS: ACETAMINOPHEN 325 MG TABLET PO (00:37)
[2022-12-26] MEDS: BENZONATATE 100 MG CAPSULE PO (00:37)
== END 2022-12-26 00:46 | disposition home or self-care (01) ==
PROVIDERS: Emergency Provider Emergency Medicine; PCP Internal Medicine
DX: U07.1 COVID-19 (principal)
CPT/HCPCS: 99283

== ENCOUNTER → 2023-01-03 10:47 | Outpatient (CLI) | payer OTHER, SELFPAY ==
[2023-01-03 12:44] LABS: Alanine Aminotransferase 22 IU/L (<35); Albumin Globulin Ratio 1.1 (1.0-2.8); Alkaline Phosphatase 83 U/L (38-126); Aspartate Aminotransferase 19 IU/L (14-36); Bilirubin Total 0.8 mg/dL (0.2-1.3); Blood Urea Nitrogen 12 mg/dL (7-17); Carbon Dioxide 29 mmol/L (22-32); Chloride 99 mmol/L (98-107); Estimated Glomerular Filt Rate > 60 mL/min (>60); Globulin 3.7 g/dL (1.7-4.1); Glucose 104 mg/dL (70-100); HEMOLYSIS < 15 (0-50); Potassium 4.4 mmol/L (3.4-5.1); Sodium 139 mmol/L (137-145); Total Protein 7.7 g/dL (6.3-8.2)
== END ==
PROVIDERS: PCP Internal Medicine; Referring Provider Internal Medicine; Visit Provider Internal Medicine
DX: M79.10 Myalgia, unspecified site (principal)
CPT/HCPCS: 36415; 80053